=== PATIENT | female | born 1990 | race African-American/Black ===

== ENCOUNTER → 2016-08-10 | Outpatient (CLI) | payer BC | LOC: MW.CHOBGYN 14:43 | PROVIDERS: ATTEND Obstetrics & Gynecology | DX: Z34.90 Encounter for supervision of normal pregnancy, unspecified, unspecified trimester (principal) | CPT/HCPCS: 36415; 81003; 82950; 85027 ==

== ENCOUNTER → 2016-08-31 | Outpatient (CLI) | payer BC | LOC: MW.CHOBGYN 13:07 | PROVIDERS: ATTEND Obstetrics & Gynecology | DX: Z34.90 Encounter for supervision of normal pregnancy, unspecified, unspecified trimester (principal) | CPT/HCPCS: 81003 ==

== ENCOUNTER → 2016-09-28 | Outpatient (CLI) | payer BC, OTHER | LOC: MW.CHOBGYN 13:18 | PROVIDERS: ATTEND Obstetrics & Gynecology | DX: Z34.90 Encounter for supervision of normal pregnancy, unspecified, unspecified trimester (principal) | CPT/HCPCS: 81003 ==

== ENCOUNTER 2016-11-08 10:20 | Inpatient (IN) | payer BC, OTHER ==
[2016-11-08] MEDS ORDERED: Misoprostol 200 MCG Tab PO PRN (10:46)
[2016-11-08] MEDS ORDERED: Butorphanol 1 MG/ML SDV IVPUSH PRN (10:46)
[2016-11-08] MEDS ORDERED: Carboprost Tromethamine 250 MCG/1 ML Amp IM PRN (10:46)
[2016-11-08] MEDS ORDERED: Nalbuphine 10 MG/1 ML Vial IVPUSH PRN (10:46)
[2016-11-08] MEDS ORDERED: Sodium Chloride 0.9% 2.5 ML Syringe FLUSH PRN (10:46)
[2016-11-08] MEDS ORDERED: Methylergonovine 0.2 MG/1 ML Amp IM PRN (10:46)
[2016-11-08] MEDS ORDERED: Sodium Chloride 0.9% 10 ML Syringe FLUSH PRN (10:46)
[2016-11-08] MEDS ORDERED: Water For Irrigation,Sterile 1,000 ML Container IRR PRN (10:46)
[2016-11-08] MEDS ORDERED: Lidocaine 1% 50 ML MDV INJECT PRN (10:46)
[2016-11-08] MEDS ORDERED: Lactated Ringers 1,000 ML IV SCH (11:00)
[2016-11-08] MEDS ORDERED: Ampicillin 2 GM in Sodium Chloride 0.9% 100 ML IV ONE (11:00)
[2016-11-08] MEDS ORDERED: Oxytocin/Lactated Ringers 30 UNIT/500 ML BAG IV SCH (11:00)
[2016-11-08] MEDS ORDERED: Benzocaine/Menthol 20%-0.5% Spray 78 GM Cannister TOP PRN (11:21)
[2016-11-08] MEDS ORDERED: Bisacodyl 10 MG Supp RECTAL PRN (11:21)
[2016-11-08] MEDS ORDERED: Witch Hazel Medicated Pads 40/Jar TOP PRN (11:21)
[2016-11-08] MEDS ORDERED: Docusate Sodium 100 MG Cap PO PRN (11:21)
[2016-11-08] MEDS ORDERED: Acetaminophen 500 MG Tab PO PRN ×2 (11:21)
[2016-11-08] MEDS ORDERED: Lanolin 100% Cream 7 GM Tube TOP PRN (11:21)
[2016-11-08] MEDS ORDERED: Ibuprofen 400 MG Tab PO PRN (11:21)
--- NOTE | 2016-11-08 11:21 | PCM.LDHP ---
L&D History of Present Illness - General Date of Service: 11/08/16 Admit Problem/Dx: Patient Status Order with Admit Dx/Problem 11/08/16 10:46 Patient Status [ADT] Routine Admission Diagnosis/Problem Admission Diagnosis/Problem - planned Source of Information: Patient History Limitations: Reports: No Limitations - History of Present Illness Improves with: Reports: None Worsens with: Reports: None Associated Symptoms: Reports: N - Related Data Allergies/Adverse Reactions: Allergies Allergy/AdvReac Type Severity Reaction Status Date / Time No Known Allergies Allergy Verified 09/18/15 20:17 Home Medications: Home Meds Amoxicillin 500 mg PO Q8HR #21 capsule 09/18/15 [Rx] Past Medical History HEENT History: Reports: None Cardiovascular History: Reports: None Respiratory History: Reports: None Gastrointestinal History: Reports: None 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 OF 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 History: Reports: 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 Musculoskeletal History: Reports: None Neurological History: Reports: None Psychiatric History: Reports: None Dermatologic History: Reports: None - Infectious Disease History Infectious Disease History: Reports: None - Past Surgical History Head Surgeries/Procedures: Reports: None HEENT Surgical History: Reports: None Cardiovascular Surgical History: Reports: None Respiratory Surgical History: Reports: None Neurological Surgical History: Reports: None Social & Family History - Family History HEENT: Reports: None Cardiac: Reports: None Respiratory: Reports: None - Tobacco Use Smoking Status *Q: Never Smoker - Recreational Drug Use Recreational Drug Use: No H&P Review of Systems - Review of Systems: Review Of Systems: See Below General: Reports: No Symptoms HEENT: Reports: No Symptoms Pulmonary: Reports: No Symptoms Cardiovascular: Reports: No Symptoms Gastrointestinal: Reports: No Symptoms Genitourinary: Reports: No Symptoms Musculoskeletal: Reports: No Symptoms Skin: Reports: No Symptoms Psychiatric: Reports: No Symptoms Neurological: Reports: No Symptoms Hematologic/Lymphatic: Reports: No Symptoms Immunologic: Reports: No Symptoms L&D Exam - Exam Exam: See Below - Vital Signs Weight: 63.503 kg - OB Specific Fundal Height In cm: 37 Contraction Duration (sec): 30 Contraction Frequency (min): q2-3 Contraction Intensity: Moderate to Strong Movement: Active Heart Tones: Present Heart Rate (FHR) Variability: Moderate (6-25 bmp) Presentation: Vertex - Willis Score Willis Score Effacement: >80% Willis Score Dilation: > 5 cm Willis Score 's Station: -1 ,0 - Patient Data Lab Results Last 24 hrs: Laboratory Results - last 24 hr 11/08/16 Range/Units 11:01 WBC 8.61 (4.0-11.0) K/uL RBC 4.09 L (4.30-5.90) M/uL Hgb 12.3 (12.0-16.0) g/dL Hct 36.9 (36.0-46.0) % MCV 90.2 (80.0-98.0) fL MCH 30.1 (27.0-32.0) pg MCHC 33.3 (31.0-37.0) g/dL RDW Std Deviation 44.5 (28.0-62.0) fl RDW Coeff of Briana 14 (11.0-15.0) % Plt Count 165 (150-400) K/uL MPV 10.80 (7.40-12.00) fL Nucleated RBC % 0.0 /100WBC Nucleated RBCs # 0 K/uL Result Diagrams: 11/08/16 11:01 Problem List Initiated/Reviewed/Updated: Yes Orders Last 24hrs: Active Orders 24 hr Category Date Time Status Patient Status [ADT] Routine ADT 11/08/16 10:46 Active Heart Tones [RC] CONTINUOUS Care 11/08/16 10:46 Active Non Stress Test [RC] PER UNIT ROUTINE Care 11/08/16 10:46 Active May Shower [RC] ASDIRECTED Care 11/08/16 10:46 Active Notify Provider [RC] PRN Care 11/08/16 10:46 Active Up ad Monica [RC] ASDIRECTED Care 11/08/16 10:46 Active Vaginal Exam [RC] PRN Care 11/08/16 10:46 Active Vital Signs [RC] PER UNIT ROUTINE Care 11/08/16 10:46 Active TYPE AND SCREEN [BBK] Routine Lab 11/08/16 11:01 Received Ampicillin 2 gm Med 11/08/16 11:00 Active Sodium Chloride 0.9% [Normal Saline] 100 ml IV ONETIME Butorphanol [Stadol] Med 11/08/16 10:46 Active 1 mg IVPUSH Q1H PRN Carboprost Tromethamine [Hemabate DS] Med 11/08/16 10:46 Active 250 mcg IM ASDIRECTED PRN Lactated Ringers [Ringers, Lactated] 1,000 ml Med 11/08/16 11:00 Active IV ASDIRECTED Lidocaine 1% [Xylocaine 1%] Med 11/08/16 10:46 Active 50 ml INJECT .ONCE PRN Methylergonovine [Methergine] Med 11/08/16 10:46 Active 0.2 mg IM ASDIRECTED PRN Misoprostol [Cytotec] Med 11/08/16 10:46 Active 200 mcg PO .ONCE PRN Nalbuphine [Nubain] Med 11/08/16 10:46 Active 10 mg IVPUSH Q1H PRN Oxytocin/Lactated Ringers [Pitocin in LR 30 Units/500 Med 11/08/16 11:00 Active ML] 30 unit in 500 ml IV TITRATE Sodium Chloride 0.9% [Saline Flush] Med 11/08/16 10:46 Active 10 ml FLUSH ASDIRECTED PRN Sodium Chloride 0.9% [Saline Flush] Med 11/08/16 10:46 Active 2.5 ml FLUSH ASDIRECTED PRN Water For Irrigation,Sterile [Sterile Water for Med 11/08/16 10:46 Active Irrigation] 1,000 ml IRR ASDIRECTED PRN Scalp Electrode [WOMSER] Per Unit Routine Oth 11/08/16 10:46 Ordered Peripheral IV Insertion Adult [OM.PC] Routine Oth 11/08/16 10:46 Ordered Resuscitation Status Routine Resus Stat 11/08/16 10:46 Ordered Medication Orders Butorphanol Tartrate (Stadol) 1 mg IVPUSH Q1H PRN PRN Reason: Pain Carboprost Tromethamine (Hemabate Ds) 250 mcg IM ASDIRECTED PRN PRN Reason: Post Hemorrhage Ampicillin Sodium 2 gm/ Sodium (Chloride) 100 mls @ 200 mls/hr IV ONETIME ONE Stop: 11/08/16 11:29 Lactated Ringer's (Ringers, Lactated) 1,000 mls @ 150 mls/hr IV ASDIRECTED [place] Oxytocin/Lactated Ringer's (Pitocin In Lr 30 Units/500 Ml) 30 unit in 500 mls @ 500 mls/hr IV TITRATE [place] PRN Reason: 500 MUNITS/MIN Stop: 11/08/16 11:59 Lidocaine HCl (Xylocaine 1%) 50 ml INJECT .ONCE PRN PRN Reason: Laceration repair Methylergonovine Maleate (Methergine) 0.2 mg IM ASDIRECTED PRN PRN Reason: Post Hemorrhage Misoprostol (Cytotec) 200 mcg PO .ONCE PRN PRN Reason: Post Hemorrhage Nalbuphine HCl (Nubain) 10 mg IVPUSH Q1H PRN PRN Reason: Pain (severe 7-10) Stop: 11/08/16 12:47 Sodium Chloride (Saline Flush) 10 ml FLUSH ASDIRECTED PRN PRN Reason: Keep Vein Open Sodium Chloride (Saline Flush) 2.5 ml FLUSH ASDIRECTED PRN PRN Reason: Keep Vein Open Sterile Water (Sterile Water For Irrigation) 1,000 ml IRR ASDIRECTED PRN PRN Reason: delivery Assessment/Plan Comment:: Term in active labor.
[2016-11-08] MEDS: Ibuprofen 800 MG Tab PO PRN ×2 (11:48→21:26)
[2016-11-08] MEDS: oxyCODONE 5 MG Tab PO PRN (11:48)
--- NOTE | 2016-11-08 14:15 | OR ---
SURGEON: Ced Rose MD DATE OF PROCEDURE: 11/08/2016 Ms. Garcias is 26 years old. She is para 4-0-0-4. She is followed in our clinic in this . She had no complications. Her GBS status was positive early in the in the urine and negative at 35 weeks. However, we elected to treat the patient with antibiotic. The patient came to Labor and Delivery in active labor. At the time of admission, she was 6-7 cm vertex, intact bag of water with regular contractions. We were able to get an IV on her and we were able to get one dose of antibiotic in her system prior to delivery; however, the patient is delivered rather quickly and she had spontaneous rupture of the membrane of clear fluid and the precipitous labor of female fetus is attended by the nursing staff. By the time I arrived to the delivery room, the fetus was already delivered and was crying and Dr. Kelley was in attendance to the delivery and scores reported to be 8 and 9, and the weight is not available. The placenta is delivered spontaneous, complete, and intact without any problem. Perineum was intact. There was no perineal or vaginal laceration. Estimated blood loss was 250 to 300 mL. No complication in this . heart rate through the process of labor was category 1. JAYA / CANDICE /[id number]
[2016-11-09] MEDS: Ibuprofen 800 MG Tab PO PRN ×3 (04:09→23:44)
--- NOTE | 2016-11-09 12:05 | PCM.DCSUM1 ---
Discharge Summary - Hospital Course Free Text/Narrative:: Discharge home with infant. Follow up 6 weeks. - Discharge Data Discharge Date: 11/09/16 Discharge Disposition: Home, Self-Care 01 Condition: Good - Patient Instructions Diet: Heart Healthy Diet Activity: As Tolerated, Rest and Relax Today Driving: Do Not Drive (for a few days) Showering/Bathing: May Shower Notify Provider of: Fever, Increased Pain, Swelling and Redness, Nausea and/or Vomiting Other/Special Instructions: Discharge home with . Follow up 6 weeks. - Discharge Plan Home Medications: Home Meds Amoxicillin 500 mg PO Q8HR #21 capsule 09/18/15 [Rx] Referrals: [facility] [Outside] Ced Rose MD [Physician] - 12/20/16 10:45 am - General Info Date of Service: 11/09/16 Admission Dx/Problem (Free Text: Patient Status Order with Admit Dx/Problem 11/08/16 10:46 Patient Status [ADT] Routine Admission Diagnosis/Problem Admission Diagnosis/Problem - planned Functional Status: Reports: pain controlled, tolerating diet, ambulating, urinating - Review of Systems General: Reports: No Symptoms HEENT: Reports: no symptoms Pulmonary: Reports: no symptoms Cardiovascular: Reports: No Symptoms Gastrointestinal: Reports: No symptoms Genitourinary: Reports: no symptoms Musculoskeletal: Reports: no symptoms Skin: Reports: no symptoms Neurological: Reports: No Symptoms Psychiatric: Reports: no symptoms - Patient Data Vitals - Most Recent: Last Vital Signs Temp 36.8 C 11/09/16 09:30 Pulse 71 11/09/16 09:30 Resp 18 11/09/16 09:30 BP 114/61 11/09/16 09:30 Pulse Ox 97 11/08/16 19:53 Weight - Most Recent: 63.503 kg Lab Results - Last 24 hrs: Laboratory Results - last 24 hr 11/09/16 Range/Units 04:33 Hgb 11.2 L (12.0-16.0) g/dL Hct 34.0 L (36.0-46.0) % Med Orders - Current: Current Medications Acetaminophen (Tylenol Extra Strength) 500 mg PO Q4H PRN PRN Reason: Pain Acetaminophen (Tylenol Extra Strength) 1,000 mg PO Q4H PRN PRN Reason: Pain Benzocaine/Menthol (Dermoplast Pain Relief 20%-0.5% [place]) 78 gm TOP ASDIRECTED PRN PRN Reason: Perineal Comfort Measure Bisacodyl (Dulcolax) 10 mg RECTAL .ONCE PRN PRN Reason: Constipation Butorphanol Tartrate (Stadol) 1 mg IVPUSH Q1H PRN PRN Reason: Pain Carboprost Tromethamine (Hemabate Ds) 250 mcg IM ASDIRECTED PRN PRN Reason: Post Hemorrhage Docusate Sodium (Colace) 100 mg PO BID PRN PRN Reason: Constipation Emollient Ointment (Lansinoh Hpa) 0 gm TOP ASDIRECTED PRN PRN Reason: Sore Nipples Lactated Ringer's (Ringers, Lactated) 1,000 mls @ 150 mls/hr IV ASDIRECTED [place]ST[place]N Last Admin: 11/08/16 10:58 Dose: 150 mls/hr Ibuprofen (Motrin) 400 mg PO Q4H PRN PRN Reason: Pain Ibuprofen (Motrin) 800 mg PO Q6H PRN PRN Reason: Pain Last Admin: 11/09/16 04:09 Dose: 800 mg Lidocaine HCl (Xylocaine 1%) 50 ml INJECT .ONCE PRN PRN Reason: Laceration repair Methylergonovine Maleate (Methergine) 0.2 mg IM ASDIRECTED PRN PRN Reason: Post Hemorrhage Misoprostol (Cytotec) 200 mcg PO .ONCE PRN PRN Reason: Post Hemorrhage Oxycodone HCl (Oxycodone) 5 mg PO Q2H PRN PRN Reason: Pain Last Admin: 11/08/16 11:48 Dose: 5 mg Sodium Chloride (Saline Flush) 10 ml FLUSH ASDIRECTED PRN PRN Reason: Keep Vein Open Sodium Chloride (Saline Flush) 2.5 ml FLUSH ASDIRECTED PRN PRN Reason: Keep Vein Open Sterile Water (Sterile Water For Irrigation) 1,000 ml IRR ASDIRECTED PRN PRN Reason: delivery Witch Gabby (Tucks) 1 pad TOP ASDIRECTED PRN PRN Reason: comfort care Discontinued Medications Ampicillin Sodium 2 gm/ Sodium (Chloride) 100 mls @ 200 mls/hr IV ONETIME ONE Stop: 11/08/16 11:29 Last Admin: 11/08/16 11:05 Dose: 200 mls/hr Oxytocin/Lactated Ringer's (Pitocin In Lr 30 Units/500 Ml) 30 unit in 500 mls @ 500 mls/hr IV TITRATE [place] PRN Reason: 500 MUNITS/MIN Stop: 11/08/16 11:59 Last Admin: 11/08/16 11:12 Dose: 500 munits/min, 500 mls/hr Nalbuphine HCl (Nubain) 10 mg IVPUSH Q1H PRN PRN Reason: Pain (severe 7-10) Stop: 11/08/16 12:47 - Exam General: Reports: alert, oriented, cooperative, no acute distress Lungs: Reports: Normal respiratory effort Abdomen: Reports: soft, no tenderness, no distension (Female) Exam: Vaginal Bleeding Rectal (Female) Exam: Deferred Back Exam: Reports: Full Range of Motion Extremities: Reports: no edema, normal pulses Skin: Reports: warm, dry, intact Wound/Incisions: Reports: healing well Neurological: Reports: no new focal deficit, normal gait, normal speech, normal tone Psy/Mental Status: Reports: alert, normal affect, normal mood *Q Meaningful Use (DIS) - VTE *Q VTE Criteria *Q: - Stroke *Q Stroke Criteria *Q: - AMI *Q AMI Criteria *Q:
[2016-11-09] MEDS: oxyCODONE 5 MG Tab PO PRN ×2 (12:26→14:07)
[2016-11-10] MEDS: oxyCODONE 5 MG Tab PO PRN ×4 (00:33→12:23)
[2016-11-10] MEDS: Ibuprofen 800 MG Tab PO PRN (08:27)
[2016-11-10 08:55] VITALS: BP 111/63
--- NOTE | 2016-11-10 11:27 | PCM.DCSUM1 ---
Discharge Summary - Discharge Data Discharge Date: 11/10/16 Discharge Disposition: Home, Self-Care 01 Condition: Good - Patient Instructions Diet: Heart Healthy Diet Activity: As Tolerated, Rest and Relax Today Driving: Do Not Drive (for a few days) Showering/Bathing: May Shower Notify Provider of: Fever, Increased Pain, Swelling and Redness, Nausea and/or Vomiting Other/Special Instructions: Discharge home with . Follow up 6 weeks. - Discharge Plan Home Medications: Home Meds Amoxicillin 500 mg PO Q8HR #21 capsule 09/18/15 [Rx] Patient Handouts: Vaginal Delivery, Care After Referrals: [facility] [Outside] Ced Rose MD [Physician] - 12/20/16 10:45 am - General Info Date of Service: 11/10/16 Functional Status: Reports: pain controlled, tolerating diet, ambulating, urinating - Review of Systems General: Reports: No Symptoms HEENT: Reports: no symptoms Pulmonary: Reports: no symptoms Cardiovascular: Reports: No Symptoms Gastrointestinal: Reports: No symptoms Genitourinary: Reports: no symptoms Musculoskeletal: Reports: no symptoms Skin: Reports: no symptoms Neurological: Reports: No Symptoms Psychiatric: Reports: no symptoms - Patient Data Vitals - Most Recent: Last Vital Signs Temp 36.7 C 11/10/16 08:54 Pulse 86 11/10/16 08:54 Resp 18 11/10/16 08:54 BP 111/63 11/10/16 08:54 Pulse Ox 98 11/10/16 04:00 Weight - Most Recent: 63.503 kg Med Orders - Current: Current Medications Acetaminophen (Tylenol Extra Strength) 500 mg PO Q4H PRN PRN Reason: Pain Acetaminophen (Tylenol Extra Strength) 1,000 mg PO Q4H PRN PRN Reason: Pain Benzocaine/Menthol (Dermoplast Pain Relief 20%-0.5% [place]) 78 gm TOP ASDIRECTED PRN PRN Reason: Perineal Comfort Measure Bisacodyl (Dulcolax) 10 mg RECTAL .ONCE PRN PRN Reason: Constipation Butorphanol Tartrate (Stadol) 1 mg IVPUSH Q1H PRN PRN Reason: Pain Carboprost Tromethamine (Hemabate Ds) 250 mcg IM ASDIRECTED PRN PRN Reason: Post Hemorrhage Docusate Sodium (Colace) 100 mg PO BID PRN PRN Reason: Constipation Emollient Ointment (Lansinoh Hpa) 0 gm TOP ASDIRECTED PRN PRN Reason: Sore Nipples Lactated Ringer's (Ringers, Lactated) 1,000 mls @ 150 mls/hr IV ASDIRECTED [facility] Last Admin: 11/08/16 10:58 Dose: 150 mls/hr Ibuprofen (Motrin) 400 mg PO Q4H PRN PRN Reason: Pain Ibuprofen (Motrin) 800 mg PO Q6H PRN PRN Reason: Pain Last Admin: 11/10/16 08:27 Dose: 800 mg Lidocaine HCl (Xylocaine 1%) 50 ml INJECT .ONCE PRN PRN Reason: Laceration repair Methylergonovine Maleate (Methergine) 0.2 mg IM ASDIRECTED PRN PRN Reason: Post Hemorrhage Misoprostol (Cytotec) 200 mcg PO .ONCE PRN PRN Reason: Post Hemorrhage Oxycodone HCl (Oxycodone) 5 mg PO Q2H PRN PRN Reason: Pain Last Admin: 11/10/16 08:27 Dose: 5 mg Sodium Chloride (Saline Flush) 10 ml FLUSH ASDIRECTED PRN PRN Reason: Keep Vein Open Sodium Chloride (Saline Flush) 2.5 ml FLUSH ASDIRECTED PRN PRN Reason: Keep Vein Open Sterile Water (Sterile Water For Irrigation) 1,000 ml IRR ASDIRECTED PRN PRN Reason: delivery Witch Gabby (Tucks) 1 pad TOP ASDIRECTED PRN PRN Reason: comfort care Discontinued Medications Ampicillin Sodium 2 gm/ Sodium (Chloride) 100 mls @ 200 mls/hr IV ONETIME ONE Stop: 11/08/16 11:29 Last Admin: 11/08/16 11:05 Dose: 200 mls/hr Oxytocin/Lactated Ringer's (Pitocin In Lr 30 Units/500 Ml) 30 unit in 500 mls @ 500 mls/hr IV TITRATE [facility] PRN Reason: 500 MUNITS/MIN Stop: 11/08/16 11:59 Last Admin: 11/08/16 11:12 Dose: 500 munits/min, 500 mls/hr Nalbuphine HCl (Nubain) 10 mg IVPUSH Q1H PRN PRN Reason: Pain (severe 7-10) Stop: 11/08/16 12:47 - Exam General: Reports: alert, oriented HEENT: Reports: Mucous membr. moist/pink Lungs: Reports: Normal respiratory effort Abdomen: Reports: soft (Female) Exam: Vaginal Bleeding Rectal (Female) Exam: Deferred Back Exam: Reports: Normal Inspection Extremities: Reports: no edema, no tenderness/swelling Skin: Reports: warm, dry, intact Wound/Incisions: Reports: healing well Neurological: Reports: no new focal deficit, normal gait, normal speech, normal tone Psy/Mental Status: Reports: alert, normal affect, normal mood *Q Meaningful Use (DIS) - VTE *Q VTE Criteria *Q: - Stroke *Q Stroke Criteria *Q: - AMI *Q AMI Criteria *Q:
== END 2016-11-10 14:30 | disposition home or self-care (01) | DRG 560 ==
LOC: MW.OBCHECK 10:20 → MW.OB 10:25 → MW.OBCHECK 11:20 → MW.OB 11:23
PROVIDERS: ADMIT Obstetrics & Gynecology; ATTEND Obstetrics & Gynecology
PROC: 10E0XZZ Delivery of Products of Conception, External Approach (ICD-10-PCS; principal; 2016-11-08)
DX: O99.824 Streptococcus B carrier state complicating childbirth (principal); O62.3 Precipitate labor; Z37.0 Single live birth; Z3A.35 35 weeks gestation of pregnancy
CPT/HCPCS: 36415; 59025; 85014; 85018; 85027; 86850; 86900; 86901; A9270-GY; J0290; J7030; J7120

== ENCOUNTER 2017-05-12 18:17 | Emergency (ER) | payer BC, OTHER ==
[2017-05-12 18:37] VITALS: BP 107/63
[2017-05-12] MEDS ORDERED: Ondansetron 4 MG Tab.DIS PO ONE (18:50)
--- NOTE | 2017-05-12 18:50 | EDM.PDOC ---
ED HPI GENERAL MEDICAL PROBLEM - General Chief Complaint: Abdominal Pain Stated Complaint: ABDOMIN PAIN Time Seen by Provider: 05/12/17 18:35 Source of Information: Reports: Patient History Limitations: Reports: No Limitations - History of Present Illness INITIAL COMMENTS - FREE TEXT/NARRATIVE: HISTORY AND PHYSICAL: History of present illness: Patient is a 26-year-old female presents to the emergency room with complaints of left lower quadrant pain. She states that for the past 2 weeks she has had a dull ache in her left lower abdomen, nausea. Patient is concerned that she may be as she does not remember her last menstrual period. Review of systems: As per history of present illness and below otherwise all systems reviewed and negative. Past medical history: As per history of present illness and as reviewed below otherwise noncontributory. Surgical history: As per history of present illness and as reviewed below otherwise noncontributory. Social history: No reported history of drug or alcohol abuse. Family history: As per history of present illness and as reviewed below otherwise noncontributory. Physical exam: General: Well-developed and well-nourished 26-year-old female. Alert and oriented. Nontoxic appearing. HEENT: Atraumatic, normocephalic, pupils reactive, negative for conjunctival pallor or scleral icterus, mucous membranes moist, throat clear, neck supple, nontender, trachea midline. Lungs: Clear to auscultation, breath sounds equal bilaterally, chest nontender. Heart: S1S2, regular rate and rhythm - no overt murmurs Abdomen: Soft, nondistended, nontender. Negative for masses or hepatosplenomegaly. Negative for costovertebral tenderness. Pelvis: Stable nontender. Genitourinary: Deferred. Rectal: Deferred. Extremities: Atraumatic, moves all extremities per self without difficulty or deficit, negative for cords or calf pain. Neurovascular unremarkable. Neuro: Awake, alert, oriented. Cranial nerves II through XII unremarkable. Cerebellum unremarkable. Motor and sensory unremarkable throughout. Exam nonfocal. was positive. Will add a quantitative hCG and a transvaginal OB ultrasound. Ultrasound shows a confirmed intrauterine gestational sac containing a pole and a yolk sac, corresponding to 6 weeks and 2 days. There is cardiac activity with a heart rate of 144 bpm. Discussed with the patient the importance of establishing care with an ELECTRICAL PRODUCTS ENGINEER for further care. Please start a vitamin daily. Patient voices understanding and is agreeable to plan of care. Denies any further questions at this time. Diagnostics: CBC, CMP, UA, HCGU, quantitative hCG, OB ultrasound Therapeutics: IV fluid, Zofran ODT Impression: First trimester Nausea and vomiting Plan: 1. Please start a vitamin once daily 2. No smoking or drinking alcohol. Tylenol is safe for pain. Zofran has been prescribed for you for your nausea, this is safe in he may take 1 tablet every 8 hours as needed to prevent nausea/vomiting. 3. Please establish care with an ELECTRICAL PRODUCTS ENGINEER for care. The phone number has been given to you. 4. Return to the ED as needed and as discussed. Definitive disposition and diagnosis as appropriate pending reevaluation and review of above. Onset: Today Duration: Hour(s): Location: Reports: Abdomen Left Lower Abdomen Pain Score (Numeric/FACES): 1 - Related Data Allergies Allergy/AdvReac Type Severity Reaction Status Date / Time No Known Allergies Allergy Verified 05/12/17 18:37 Home Meds: Home Meds . [No Known Home Meds] 05/12/17 [History] Past Medical History - Past Health History Medical/Surgical History: Denies Medical/Surgical History HEENT History: Reports: None Cardiovascular History: Reports: None Respiratory History: Reports: None Gastrointestinal History: Reports: None ELECTRICAL PRODUCTS ENGINEER History: Reports: None, Musculoskeletal History: Reports: None Neurological History: Reports: None Psychiatric History: Reports: None Dermatologic History: Reports: None - Infectious Disease History Infectious Disease History: Reports: Chicken Pox - Past Surgical History Head Surgeries/Procedures: Reports: None HEENT Surgical History: Reports: None Cardiovascular Surgical History: Reports: None Respiratory Surgical History: Reports: None Neurological Surgical History: Reports: None Social & Family History - Family History HEENT: Reports: None Cardiac: Reports: None Respiratory: Reports: None - Tobacco Use Smoking Status *Q: Never Smoker Second Hand Smoke Exposure: No - Caffeine Use Caffeine Use: Reports: Coffee - Recreational Drug Use Recreational Drug Use: No ED ROS GENERAL - Review of Systems Review Of Systems: ROS reveals no pertinent complaints other than HPI. ED EXAM, GI/ABD - Physical Exam Exam: See Below (See dictation) Course - Vital Signs Last Recorded V/S: Last Vital Signs Temp 96.7 F 05/12/17 18:35 Pulse 77 05/12/17 18:35 Resp 12 05/12/17 18:35 BP 107/63 05/12/17 18:35 Pulse Ox 99 05/12/17 18:35 - Orders/Labs/Meds Orders: Active Orders 24 hr Category Date Time Status OB Transvaginal [US] Stat Exams 05/12/17 19:15 Taken CULTURE URINE [RM] Stat Lab 05/12/17 18:43 Received Labs: Laboratory Tests 05/12/17 05/12/17 05/12/17 Range/Units 18:43 18:43 19:06 WBC 4.86 (4.0-11.0) K/uL RBC 4.40 (4.30-5.90) M/uL Hgb 13.1 (12.0-16.0) g/dL Hct 39.1 (36.0-46.0) % MCV 88.9 (80.0-98.0) fL MCH 29.8 (27.0-32.0) pg MCHC 33.5 (31.0-37.0) g/dL RDW Std Deviation 40.9 (28.0-62.0) fl RDW Coeff of Briana 13 (11.0-15.0) % Plt Count 162 (150-400) K/uL MPV 11.40 (7.40-12.00) fL Neut % (Auto) 57.8 (48.0-80.0) % Lymph % (Auto) 34.2 (16.0-40.0) % Cherry % (Auto) 6.4 (0.0-15.0) % Eos % (Auto) 1.0 (0.0-7.0) % Baso % (Auto) 0.6 (0.0-1.5) % Neut # (Auto) 2.8 (1.4-5.7) K/uL Lymph # (Auto) 1.7 (0.6-2.4) K/uL Cherry # (Auto) 0.3 (0.0-0.8) K/uL Eos # (Auto) 0.1 (0.0-0.7) K/uL Baso # (Auto) 0.0 (0.0-0.1) K/uL Nucleated RBC % 0.0 /100WBC Nucleated RBCs # 0 K/uL Sodium (136-146) mmol/L Potassium (3.5-5.1) mmol/L Chloride (98-110) mmol/L Carbon Dioxide (21-31) mmol/L BUN (6.0-23.0) mg/dL Creatinine (0.6-1.5) mg/dL Est Cr Clr Drug Dosing mL/min Estimated GFR (MDRD) ml/min Glucose (60-110) mg/dL Calcium (8.8-10.8) mg/dL Total Bilirubin (0.1-1.5) mg/dL AST (5-40) IU/L ALT (8-54) IU/L Alkaline Phosphatase (40-150) Total Protein (6.0-8.0) g/dL Albumin (3.5-5.0) g/dL Globulin (2.0-3.5) g/dL Albumin/Globulin Ratio (1.3-2.8) HCG, Quant mIU/mL Urine Color YELLOW Urine Appearance CLEAR Urine pH 8.0 (5.0-8.0) Ur Specific [place] 1.020 (1.001-1.035) Urine Protein TRACE (NEGATIVE) mg/dL Urine Glucose (UA) NEGATIVE (NEGATIVE) mg/dL Urine Ketones NEGATIVE (NEGATIVE) mg/dL Urine Occult Blood NEGATIVE (NEGATIVE) Urine Nitrite NEGATIVE (NEGATIVE) Urine Bilirubin NEGATIVE (NEGATIVE) Urine Urobilinogen 2.0 H (<2.0) EU/dL Ur Leukocyte Esterase NEGATIVE (NEGATIVE) Urine RBC 0-2 (0-2/HPF) Urine WBC 1-3 (0-5/HPF) Ur Epithelial Cells MODERATE (NONE-FEW) Urine Bacteria FEW (NEGATIVE) Urine Mucus FEW (NONE-MOD) Urine HCG, Qual POSITIVE (NEGATIVE) 05/12/17 05/12/17 Range/Units 19:06 19:06 WBC (4.0-11.0) K/uL RBC (4.30-5.90) M/uL Hgb (12.0-16.0) g/dL Hct (36.0-46.0) % MCV (80.0-98.0) fL MCH (27.0-32.0) pg MCHC (31.0-37.0) g/dL RDW Std Deviation (28.0-62.0) fl RDW Coeff of Briana (11.0-15.0) % Plt Count (150-400) K/uL MPV (7.40-12.00) fL Neut % (Auto) (48.0-80.0) % Lymph % (Auto) (16.0-40.0) % Cherry % (Auto) (0.0-15.0) % Eos % (Auto) (0.0-7.0) % Baso % (Auto) (0.0-1.5) % Neut # (Auto) (1.4-5.7) K/uL Lymph # (Auto) (0.6-2.4) K/uL Cherry # (Auto) (0.0-0.8) K/uL Eos # (Auto) (0.0-0.7) K/uL Baso # (Auto) (0.0-0.1) K/uL Nucleated RBC % /100WBC Nucleated RBCs # K/uL Sodium 138 (136-146) mmol/L Potassium 3.5 (3.5-5.1) mmol/L Chloride 109 (98-110) mmol/L Carbon Dioxide 24 (21-31) mmol/L BUN 13 (6.0-23.0) mg/dL Creatinine 0.7 (0.6-1.5) mg/dL Est Cr Clr Drug Dosing 108.63 mL/min Estimated GFR (MDRD) > 60.0 ml/min Glucose 81 (60-110) mg/dL Calcium 8.8 (8.8-10.8) mg/dL Total Bilirubin 0.5 (0.1-1.5) mg/dL AST 15 (5-40) IU/L ALT 13 (8-54) IU/L Alkaline Phosphatase 62 (40-150) Total Protein 7.0 (6.0-8.0) g/dL Albumin 3.8 (3.5-5.0) g/dL Globulin 3.2 (2.0-3.5) g/dL Albumin/Globulin Ratio 1.2 L (1.3-2.8) HCG, Quant 724477.7 mIU/mL Urine Color Urine Appearance Urine pH (5.0-8.0) Ur Specific [place] (1.001-1.035) Urine Protein (NEGATIVE) mg/dL Urine Glucose (UA) (NEGATIVE) mg/dL Urine Ketones (NEGATIVE) mg/dL Urine Occult Blood (NEGATIVE) Urine Nitrite (NEGATIVE) Urine Bilirubin (NEGATIVE) Urine Urobilinogen (<2.0) EU/dL Ur Leukocyte Esterase (NEGATIVE) Urine RBC (0-2/HPF) Urine WBC (0-5/HPF) Ur Epithelial Cells (NONE-FEW) Urine Bacteria (NEGATIVE) Urine Mucus (NONE-MOD) Urine HCG, Qual (NEGATIVE) Meds: Medications Discontinued Medications Generic Name Dose Route Start Last Admin Trade Name Elodia PRN Reason Stop Dose Admin Sodium Chloride 1,000 mls @ 999 mls/hr 05/12/17 19:16 05/12/17 19:28 Normal Saline IV 05/12/17 20:16 Not Given STAT ONE Ondansetron HCl 4 mg 05/12/17 18:50 05/12/17 19:04 Zofran Odt PO 05/12/17 18:51 4 mg ONETIME ONE Administration Departure - Departure Time of Disposition: 20:46 Disposition: Home, Self-Care 01 Clinical Impression: First trimester , Nausea and vomiting during - Discharge Information Referrals: Ced Rose MD [Primary Care Provider] - Forms: ED Department Discharge Additional Instructions: My general discharge The following information is given to patients seen in the emergency department who are being discharged to home. This information is to outline your options for follow-up care. We provide all patients seen in our emergency department with a follow-up referral. The need for follow-up, as well as the timing and circumstances, are variable depending upon the specifics of your emergency department visit. If you don't have a primary care physician on staff, we will provide you with a referral. We always advise you to contact your personal physician following an emergency department visit to inform them of the circumstance of the visit and for follow-up with them and/or the need for any referrals to a consulting specialist. The emergency department will also refer you to a specialist when appropriate. This referral assures that you have the opportunity for follow-up care with a specialist. All of these measure are taken in an effort to provide you with optimal care, which includes your follow-up. Under all circumstances we always encourage you to contact your private physician who remains a resource for coordinating your care. When calling for follow-up care, please make the office aware that this follow-up is from your recent emergency room visit. If for any reason you are refused follow-up, please contact the [facility] Emergency Department at and asked to speak to the emergency department charge nurse. [facility] [address] [place] [id number] [facility] [address] [address] 1. Please start a vitamin once daily 2. No smoking or drinking alcohol. Tylenol is safe for pain. Zofran has been prescribed for you for your nausea, this is safe in he may take 1 tablet every 8 hours as needed to prevent nausea/vomiting. 3. Please establish care with an ELECTRICAL PRODUCTS ENGINEER for care. The phone number has been given to you. 4. Return to the ED as needed and as discussed. - My Orders Last 24 Hours: My Active Orders 05/12/17 18:43 CULTURE URINE [RM] Stat 05/12/17 19:15 OB Transvaginal [US] Stat - Assessment/Plan Last 24 Hours: My Active Orders 05/12/17 18:43 CULTURE URINE [RM] Stat 05/12/17 19:15 OB Transvaginal [US] Stat
[2017-05-12] MEDS ORDERED: Sodium Chloride 0.9% 1,000 ML IV ONE (19:16)
[2017-05-12 19:37] LABS: CHLORIDE,CL 109 mmol/L (98-110); SODIUM,NA 138 mmol/L (136-146)
--- NOTE | 2017-05-16 13:08 | US ---
EXAM DATE: 05/12/17 PATIENT'S AGE: 26 Patient: PRASANTH SALMON Facility: [place], [place] Site . Site : 1990 Study: US OB Pelvis [id number] 8:15:31 PM Ordering Physician: Doctor Johnson Final Report: INDICATION: . Left lower quadrant pain TECHNIQUE: Ultrasound OB pelvis transvaginal. Real-time welsh-scale imaging of the pelvis was performed. COMPARISON: None available FINDINGS: There is an intrauterine gestational sac containing a pole and a yolk sac with a crown-rump length of 4- 5 millimeters, corresponding to 6 weeks and 2 days. There is cardiac activity with a heart rate of 144 bpm. The yolk sac measures 2 millimeters. The cervix is closed, measuring 3.6 centimeters. A cervical nabothian cyst is seen. The left ovary measures 1.6 x 2.5 x 2.0 centimeters and the right ovary measures 3.9 x 4.3 x 2.6 centimeters, containing a 2.7 x 2.0 centimeter corpus luteum. There is small free fluid. IMPRESSION: A single live early intrauterine gestation at 6 weeks and 2 days by crown-rump length. Small free fluid. Dictated by Jared Steen MD @ 05/12/2017 8:40:51 PM Dictated by: Jared Steen MD @ 05/12/2017 20:40:58 (Electronic Signature) Report Signed by Proxy. ALESSIA
== END 2017-05-12 20:59 | disposition home or self-care (01) ==
LOC: MW.ED 18:17
DX: O21.9 Vomiting of pregnancy, unspecified (principal); Z3A.01 Less than 8 weeks gestation of pregnancy
CPT/HCPCS: 36415; 76817; 80053; 81001; 81025; 84702; 85025; 87086; 99284; A9270

== ENCOUNTER 2017-11-14 15:39 | Emergency (ER) | payer BC, OTHER, SELFPAY ==
[2017-11-14] MEDS ORDERED: Acetaminophen 325 MG Tab PO ONE (16:03)
--- NOTE | 2017-11-14 16:04 | EDM.PDOC ---
ED HPI GENERAL MEDICAL PROBLEM - General Chief Complaint: Lower Extremity Injury/Pain Stated Complaint: RIGHT LEG PAIN FROM FALL Time Seen by Provider: 11/14/17 15:47 Source of Information: Reports: Patient History Limitations: Reports: No Limitations - History of Present Illness INITIAL COMMENTS - FREE TEXT/NARRATIVE: History of present illness: []Patient is in her third trimester of and fell 5 days ago in the shower and did the splits. She has had severe pain right upper thigh/groin. She' s been using icy hot without relief. She denies any hip pain. Review of systems: As per history of present illness and below otherwise all systems reviewed and negative. Past medical history: As per history of present illness and as reviewed below otherwise noncontributory. Surgical history: As per history of present illness and as reviewed below otherwise noncontributory. Social history: No reported history of drug or alcohol abuse. Family history: As per history of present illness and as reviewed below otherwise noncontributory. Physical exam: General: Well developed, well nourished in NAD HEENT: Atraumatic, normocephalic, pupils reactive, negative for conjunctival pallor or scleral icterus, mucous membranes moist, throat clear, neck supple, nontender, trachea midline. Lungs: Clear to auscultation, breath sounds equal bilaterally, chest nontender. Heart: S1S2, regular, negative for clicks, rubs, or JVD. Abdomen: abdomen, nondistended, nontender. Negative for masses or hepatosplenomegaly. Negative for costovertebral tenderness. Pelvis: Stable nontender. Genitourinary: Deferred. Rectal: Deferred. Extremities: Atraumatic, full range of motion pelvis stable to rock tenderness in the right groin to palpation and with external rotation. negative for cords or calf pain. Neurovascular unremarkable. Neuro: Awake, alert, oriented. Cranial nerves II through XII unremarkable. Cerebellum unremarkable. Motor and sensory unremarkable throughout. Exam nonfocal. Diagnostics: [] Therapeutics: []Patient was cleared by Dr. Rose prior to arrival to ED. Impression: []Right Groin pull Plan: []Tylenol, ice, heat follow-up with PMD. Definitive disposition and diagnosis as appropriate pending reevaluation and review of above. right leg Pain Score (Numeric/FACES): 10 - Related Data Allergies Allergy/AdvReac Type Severity Reaction Status Date / Time No Known Allergies Allergy Verified 11/14/17 15:52 Home Meds: Home Meds . [No Known Home Meds] 05/12/17 [History] Past Medical History - Past Health History Medical/Surgical History: Denies Medical/Surgical History HEENT History: Reports: None Cardiovascular History: Reports: None Respiratory History: Reports: None Gastrointestinal History: Reports: None Genitourinary History: Reports: None PHOTOGRAPH EDITOR History: Reports: Musculoskeletal History: Reports: None Neurological History: Reports: None Psychiatric History: Reports: None Endocrine/Metabolic History: Reports: None Hematologic History: Reports: None Immunologic History: Reports: None Oncologic (Cancer) History: Reports: None Dermatologic History: Reports: None - Infectious Disease History Infectious Disease History: Reports: Chicken Pox - Past Surgical History Head Surgeries/Procedures: Reports: None HEENT Surgical History: Reports: None Cardiovascular Surgical History: Reports: None Respiratory Surgical History: Reports: None GI Surgical History: Reports: None Female Surgical History: Reports: None Endocrine Surgical History: Reports: None Neurological Surgical History: Reports: None Musculoskeletal Surgical History: Reports: None Oncologic Surgical History: Reports: None Social & Family History - Family History Family Medical History: Noncontributory HEENT: Reports: None Cardiac: Reports: None Respiratory: Reports: None - Tobacco Use Smoking Status *Q: Never Smoker Second Hand Smoke Exposure: No - Caffeine Use Caffeine Use: Reports: None - Recreational Drug Use Recreational Drug Use: No Review of Systems - Review of Systems Review Of Systems: See Below (See history of present illness) ED EXAM, GENERAL - Physical Exam Exam: See Below (See history of present illness) Course - Vital Signs Last Recorded V/S: Last Vital Signs Temp 97.5 F 11/14/17 15:52 Pulse 89 11/14/17 15:52 Resp 18 11/14/17 15:52 BP 99/52 L 11/14/17 15:52 Pulse Ox 98 11/14/17 15:52 - Orders/Labs/Meds Meds: Medications Discontinued Medications Generic Name Dose Route Start Last Admin Trade Name Freq PRN Reason Stop Dose Admin Acetaminophen 650 mg 11/14/17 16:03 11/14/17 16:14 Tylenol PO 11/14/17 16:04 650 mg NOW ONE Administration Departure - Departure Time of Disposition: 16:08 Disposition: Home, Self-Care 01 Condition: Good Clinical Impression: Musculoskeletal strain - Discharge Information Referrals: PCP,None [Primary Care Provider] - Forms: ED Department Discharge Additional Instructions: The following information is given to patients seen in the emergency department who are being discharged to home. This information is to outline your options for follow-up care. We provide all patients seen in our emergency department with a follow-up referral. The need for follow-up, as well as the timing and circumstances, are variable depending upon the specifics of your emergency department visit. If you don't have a primary care physician on staff, we will provide you with a referral. We always advise you to contact your personal physician following an emergency department visit to inform them of the circumstance of the visit and for follow-up with them and/or the need for any referrals to a consulting specialist. The emergency department will also refer you to a specialist when appropriate. This referral assures that you have the opportunity for follow-up care with a specialist. All of these measure are taken in an effort to provide you with optimal care, which includes your follow-up. Under all circumstances we always encourage you to contact your private physician who remains a resource for coordinating your care. When calling for follow-up care, please make the office aware that this follow-up is from your recent emergency room visit. If for any reason you are refused follow-up, please contact the [facility] Emergency Department at and asked to speak to the emergency department charge nurse. Use ice 20 minutes at a time alternate with heat for comfort Tylenol for pain, follow up with her primary care physician. [facility] Primary Care - Women's Health [address] [place] [id number]
[2017-11-14 16:34] VITALS: BP 98/63
== END 2017-11-14 16:31 | disposition home or self-care (01) ==
LOC: MW.ED 15:39
DX: S76.211A Strain of adductor muscle, fascia and tendon of right thigh, initial encounter (principal); W18.2XXA Fall in (into) shower or empty bathtub, initial encounter
CPT/HCPCS: 99282; A9270

== ENCOUNTER 2018-01-04 05:13 | Inpatient (IN) | payer BC ==
[2018-01-04] MEDS ORDERED: Oxytocin/0.9 % Sodium Chloride 30 UNIT/500 ML BAG ONE (05:19)
[2018-01-04] MEDS ORDERED: Butorphanol 1 MG/ML SDV IVPUSH PRN (05:30)
[2018-01-04] MEDS ORDERED: Water For Irrigation,Sterile 1,000 ML Container IRR PRN (05:30)
[2018-01-04] MEDS ORDERED: Sodium Chloride 0.9% 2.5 ML Syringe FLUSH PRN (05:30)
[2018-01-04] MEDS ORDERED: Methylergonovine 0.2 MG/1 ML Amp IM PRN (05:30)
[2018-01-04] MEDS ORDERED: Nalbuphine 10 MG/1 ML Vial IVPUSH PRN (05:30)
[2018-01-04] MEDS ORDERED: Carboprost Tromethamine 250 MCG/1 ML Amp IM PRN (05:30)
[2018-01-04] MEDS ORDERED: Sodium Chloride 0.9% 10 ML Syringe FLUSH PRN (05:30)
[2018-01-04] MEDS ORDERED: Misoprostol 200 MCG Tab PO PRN (05:30)
[2018-01-04] MEDS ORDERED: Oxytocin/0.9 % Sodium Chloride 30 UNIT/500 ML BAG IV SCH (05:30)
[2018-01-04] MEDS ORDERED: Lidocaine 1% 50 ML MDV INJECT PRN (05:30)
[2018-01-04] MEDS ORDERED: Tranexamic Acid 1,000 MG in Sodium Chloride 0.9% 100 ML IV PRN (05:30)
[2018-01-04] MEDS ORDERED: Lactated Ringers 1,000 ML IV SCH (05:30)
[2018-01-04] MEDS ORDERED: Acetaminophen 500 MG Tab PO PRN ×2 (05:52)
[2018-01-04] MEDS ORDERED: Lanolin 100% Cream 7 GM Tube TOP PRN (05:52)
[2018-01-04] MEDS ORDERED: Bisacodyl 10 MG Supp RECTAL PRN (05:52)
[2018-01-04] MEDS ORDERED: Docusate Sodium 100 MG Cap PO PRN (05:52)
[2018-01-04] MEDS ORDERED: Ibuprofen 400 MG Tab PO PRN (05:52)
[2018-01-04] MEDS ORDERED: Witch Hazel Medicated Pads 40/Jar TOP PRN (05:52)
[2018-01-04] MEDS ORDERED: Benzocaine/Menthol 20%-0.5% Spray 78 GM Cannister TOP PRN (05:52)
--- NOTE | 2018-01-04 05:52 | PCM.LDHP ---
L&D History of Present Illness - General Date of Service: 01/04/18 Admit Problem/Dx: Patient Status Order with Admit Dx/Problem 01/04/18 05:30 Patient Status [ADT] Routine Admission Diagnosis/Problem Admission Diagnosis/Problem - planned Source of Information: Patient History Limitations: Reports: No Limitations - History of Present Illness Improves with: Reports: None Worsens with: Reports: None Associated Symptoms: Reports: N - Related Data Allergies/Adverse Reactions: Allergies Allergy/AdvReac Type Severity Reaction Status Date / Time No Known Allergies Allergy Verified 11/14/17 15:52 Home Medications: Home Meds . 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: Musculoskeletal History: Reports: None Neurological History: Reports: None Psychiatric History: Reports: None Endocrine/Metabolic History: Reports: None Hematologic History: Reports: None Immunologic History: Reports: None Oncologic (Cancer) History: Reports: None Dermatologic History: Reports: None - Infectious Disease History Infectious Disease History: Reports: Chicken Pox - Past Surgical History Head Surgeries/Procedures: Reports: None HEENT Surgical History: Reports: None Cardiovascular Surgical History: Reports: None Respiratory Surgical History: Reports: None GI Surgical History: Reports: None Female Surgical History: Reports: None Endocrine Surgical History: Reports: None Neurological Surgical History: Reports: None Musculoskeletal Surgical History: Reports: None Oncologic Surgical History: Reports: None Social & Family History - Family History Family Medical History: Noncontributory HEENT: Reports: None Cardiac: Reports: None Respiratory: Reports: None - Caffeine Use Caffeine Use: Reports: None H&P Review of Systems - Review of Systems: Review Of Systems: See Below General: Reports: No Symptoms HEENT: Reports: No Symptoms Pulmonary: Reports: No Symptoms Cardiovascular: Reports: No Symptoms Gastrointestinal: Reports: No Symptoms Genitourinary: Reports: No Symptoms Musculoskeletal: Reports: No Symptoms Skin: Reports: No Symptoms Psychiatric: Reports: No Symptoms Neurological: Reports: No Symptoms Hematologic/Lymphatic: Reports: No Symptoms Immunologic: Reports: No Symptoms L&D Exam - Exam Exam: See Below - OB Specific Contraction Intensity: Moderate to Strong Movement: Active Heart Tones: Present Presentation: Vertex - Willis Score Willis Score Cervix Position: Anterior Willis Score Consistency: Soft Willis Score Effacement: >80% Willis Score Dilation: > 5 cm Willis Score Infant's Station: -1 ,0 Willis Score Total: 12 - Exam General: Alert, Oriented HEENT: PERRLA, Conjunctiva Clear, EACs Clear, EOMI, Hearing Intact, Mucosa Moist & [place], Nares Patent, Normal Nasal Septum, Posterior Pharynx Clear, TMs Clear Neck: Supple, Trachea Midline Lungs: Clear to Auscultation, Normal Respiratory Effort Cardiovascular: Regular Rate, Regular Rhythm GI/Abdominal Exam: Normal Bowel Sounds, Soft, Non-Tender, No Organomegaly, No Distention, No Abnormal Bruit, No Mass, Pelvis Stable Rectal Exam: Normal Exam, Normal Rectal Tone Genitourinary: Normal external exam, Normal bimanual exam, Normal speculum exam Back Exam: Normal Inspection, Full Range of Motion Extremities: Normal Inspection, Normal Range of Motion, Non-Tender, No Pedal Edema, Normal Capillary Refill Skin: Warm, Dry, Intact Neurological: Cranial Nerves Intact, Reflexes Equal Bilateral Psychiatric: Alert, Normal Affect, Normal Mood - Patient Data Lab Results Last 24 hrs: Laboratory Results - last 24 hr 01/04/18 Range/Units 05:30 WBC 7.12 (4.0-11.0) K/uL RBC 4.20 L (4.30-5.90) M/uL Hgb 11.8 L (12.0-16.0) g/dL Hct 35.9 L (36.0-46.0) % MCV 85.5 (80.0-98.0) fL MCH 28.1 (27.0-32.0) pg MCHC 32.9 (31.0-37.0) g/dL RDW Std Deviation 45.4 (28.0-62.0) fl RDW Coeff of Briana 15 (11.0-15.0) % Plt Count 177 (150-400) K/uL MPV 12.70 H (7.40-12.00) fL Nucleated RBC % 0.0 /100WBC Nucleated RBCs # 0 K/uL Result Diagrams: 01/04/18 05:30 Problem List Initiated/Reviewed/Updated: Yes Orders Last 24hrs: Active Orders 24 hr Category Date Time Status Patient Status [ADT] Routine ADT 01/04/18 05:30 Active Heart Tones [RC] CONTINUOUS Care 01/04/18 05:30 Active Non Stress Test [RC] PER UNIT ROUTINE Care 01/04/18 05:30 Active May Shower [RC] ASDIRECTED Care 01/04/18 05:30 Active Notify Provider [RC] PRN Care 01/04/18 05:30 Active Up ad Monica [RC] ASDIRECTED Care 01/04/18 05:30 Active Vaginal Exam [RC] PRN Care 01/04/18 05:30 Active Vital Signs [RC] PER UNIT ROUTINE Care 01/04/18 05:30 Active TYPE AND SCREEN [BBK] Stat Lab 01/04/18 05:30 Received Butorphanol [Stadol] Med 01/04/18 05:30 Active 1 mg IVPUSH Q1H PRN Carboprost Tromethamine [Hemabate DS] Med 01/04/18 05:30 Active 250 mcg IM ASDIRECTED PRN Lactated Ringers [Ringers, Lactated] 1,000 ml Med 01/04/18 05:30 Active IV ASDIRECTED Lidocaine 1% [Xylocaine 1%] Med 01/04/18 05:30 Active 50 ml INJECT ONETIME PRN Methylergonovine [Methergine] Med 01/04/18 05:30 Active 0.2 mg IM ASDIRECTED PRN Nalbuphine [Nubain] Med 01/04/18 05:30 Active 10 mg IVPUSH Q1H PRN Oxytocin/0.9 % Sodium Chloride [Oxytocin 30 Unit/500 ML Med 01/04/18 05:30 Active -NS] 30 unit in 500 ml IV TITRATE Sodium Chloride 0.9% [Saline Flush] Med 01/04/18 05:30 Active 10 ml FLUSH ASDIRECTED PRN Sodium Chloride 0.9% [Saline Flush] Med 01/04/18 05:30 Active 2.5 ml FLUSH ASDIRECTED PRN Tranexamic Acid [Cyklokapron] 1,000 mg Med 01/04/18 05:30 Active Sodium Chloride 0.9% [Normal Saline] 100 ml IV ONETIME Water For Irrigation,Sterile [Sterile Water for Med 01/04/18 05:30 Active Irrigation] 1,000 ml IRR ASDIRECTED PRN miSOPROStol [Cytotec] Med 01/04/18 05:30 Active 200 mcg PO ONETIME PRN Scalp Electrode [WOMSER] Per Unit Routine Oth 01/04/18 05:30 Ordered Peripheral IV Insertion Adult [OM.PC] Routine Oth 01/04/18 05:30 Ordered Resuscitation Status Routine Resus Stat 01/04/18 05:30 Ordered Medication Orders Butorphanol Tartrate (Stadol) 1 mg IVPUSH Q1H PRN PRN Reason: Pain Carboprost Tromethamine (Hemabate Ds) 250 mcg IM ASDIRECTED PRN PRN Reason: Post Hemorrhage Lactated Ringer's (Ringers, Lactated) 1,000 mls @ 150 mls/hr IV ASDIRECTED SEBASTIÁN Oxytocin/Sodium Chloride (Oxytocin 30 Unit/500 Ml-Ns) 30 unit in 500 mls @ 999 mls/hr IV TITRATE SEBASTIÁN Tranexamic Acid 1,000 mg/ (Sodium Chloride) 110 mls @ 660 mls/hr IV ONETIME PRN PRN Reason: Bleeding Lidocaine HCl (Xylocaine 1%) 50 ml INJECT ONETIME PRN PRN Reason: Laceration repair Methylergonovine Maleate (Methergine) 0.2 mg IM ASDIRECTED PRN PRN Reason: Post Hemorrhage Misoprostol (Cytotec) 200 mcg PO ONETIME PRN PRN Reason: Post Hemorrhage Nalbuphine HCl (Nubain) 10 mg IVPUSH Q1H PRN PRN Reason: Pain (severe 7-10) Sodium Chloride (Saline Flush) 10 ml FLUSH ASDIRECTED PRN PRN Reason: Keep Vein Open Sodium Chloride (Saline Flush) 2.5 ml FLUSH ASDIRECTED PRN PRN Reason: Keep Vein Open Sterile Water (Sterile Water For Irrigation) 1,000 ml IRR ASDIRECTED PRN PRN Reason: delivery Assessment/Plan Comment:: Terpregnancy in active labor.
[2018-01-04] MEDS: Ibuprofen 800 MG Tab PO PRN ×3 (06:22→19:29)
[2018-01-04] MEDS: oxyCODONE 5 MG Tab PO PRN ×3 (07:32→21:52)
--- NOTE | 2018-01-04 13:29 | OR ---
SURGEON: Ced Rose MD DATE OF PROCEDURE: 01/04/2018 Ms. Garcias is 27. She is para 3-0-0-3. She is followed in our practice primarily by me. She started her care late at 28 weeks. Her GBS status was negative. Her diabetes screen is negative. The rest of her lab work prenatally was normal. The patient had uncomplicated care. She is admitted to Labor and delivery early this morning in active labor. At the time of admission, she was 8 and 9 cm with a bulging bag of water with vertex presentation. She had an artificial rupture of the membranes and quickly, she was able to accomplish normal spontaneous vaginal delivery of a male fetus. score reported to be 8 and 9. The weight is not available. The placenta delivered spontaneous, complete, and intact without any problem. There was no episiotomy needed. There was no laceration. Estimated blood loss in this delivery 350 to 400 mL. heart rate was category 1 through the entire process of labor. JAYA / CANDICE /[id number]
[2018-01-05] MEDS: oxyCODONE 5 MG Tab PO PRN (08:02)
[2018-01-05] MEDS: Ibuprofen 800 MG Tab PO PRN (08:03)
[2018-01-05 08:14] VITALS: BP 114/73
--- NOTE | 2018-01-05 08:59 | PCM.PNPP ---
- General Info Date of Service: 01/05/18 Functional Status: Reports: Pain Controlled - Review of Systems General: Reports: No Symptoms HEENT: Reports: No Symptoms Pulmonary: Reports: No Symptoms Cardiovascular: Reports: No Symptoms Gastrointestinal: Reports: No Symptoms Genitourinary: Reports: No Symptoms Musculoskeletal: Reports: No Symptoms Skin: Reports: No Symptoms Neurological: Reports: No Symptoms Psychiatric: Reports: No Symptoms - General Info Date of Service: 01/05/18 - Patient Data Vital Signs - Most Recent: Last Vital Signs Temp 36.9 C 01/05/18 08:06 Pulse 65 01/05/18 08:06 Resp 15 01/05/18 08:06 BP 114/73 01/05/18 08:06 Pulse Ox 98 01/05/18 08:06 Weight - Most Recent: 63.503 kg Lab Results - Last 24 Hours: Laboratory Results - last 24 hr 01/05/18 Range/Units 04:58 Hgb 10.9 L (12.0-16.0) g/dL Hct 33.0 L (36.0-46.0) % Med Orders - Current: Current Medications Acetaminophen (Tylenol Extra Strength) 500 mg PO Q4H PRN PRN Reason: Pain Acetaminophen (Tylenol Extra Strength) 1,000 mg PO Q4H PRN PRN Reason: Pain Benzocaine/Menthol (Dermoplast Pain Relief 20%-0.5% [place]) 78 gm TOP ASDIRECTED PRN PRN Reason: Perineal Comfort Measure Bisacodyl (Dulcolax) 10 mg RECTAL ONETIME PRN PRN Reason: Constipation Butorphanol Tartrate (Stadol) 1 mg IVPUSH Q1H PRN PRN Reason: Pain Carboprost Tromethamine (Hemabate Ds) 250 mcg IM ASDIRECTED PRN PRN Reason: Post Hemorrhage Docusate Sodium (Colace) 100 mg PO BID PRN PRN Reason: Constipation Last Admin: 01/04/18 19:29 Dose: 100 mg Emollient Ointment (Lansinoh Hpa) 0 gm TOP ASDIRECTED PRN PRN Reason: Sore Nipples Lactated Ringer's (Ringers, Lactated) 1,000 mls @ 150 mls/hr IV ASDIRECTED SEBASTIÁN Oxytocin/Sodium Chloride (Oxytocin 30 Unit/500 Ml-Ns) 30 unit in 500 mls @ 999 mls/hr IV TITRATE SEBASTIÁN Last Admin: 01/04/18 05:41 Dose: 999 mls/hr Tranexamic Acid 1,000 mg/ (Sodium Chloride) 110 mls @ 660 mls/hr IV ONETIME PRN PRN Reason: Bleeding Ibuprofen (Motrin) 400 mg PO Q4H PRN PRN Reason: Pain Ibuprofen (Motrin) 800 mg PO Q6H PRN PRN Reason: Pain Last Admin: 01/05/18 08:03 Dose: 800 mg Lidocaine HCl (Xylocaine 1%) 50 ml INJECT ONETIME PRN PRN Reason: Laceration repair Methylergonovine Maleate (Methergine) 0.2 mg IM ASDIRECTED PRN PRN Reason: Post Hemorrhage Misoprostol (Cytotec) 200 mcg PO ONETIME PRN PRN Reason: Post Hemorrhage Nalbuphine HCl (Nubain) 10 mg IVPUSH Q1H PRN PRN Reason: Pain (severe 7-10) Oxycodone HCl (Oxycodone) 5 mg PO Q2H PRN PRN Reason: Pain Last Admin: 01/05/18 08:02 Dose: 5 mg Sodium Chloride (Saline Flush) 10 ml FLUSH ASDIRECTED PRN PRN Reason: Keep Vein Open Sodium Chloride (Saline Flush) 2.5 ml FLUSH ASDIRECTED PRN PRN Reason: Keep Vein Open Sterile Water (Sterile Water For Irrigation) 1,000 ml IRR ASDIRECTED PRN PRN Reason: delivery Witch Gabby (Tucks) 1 pad TOP ASDIRECTED PRN PRN Reason: comfort care Discontinued Medications Oxytocin/Sodium Chloride (Oxytocin 30 Unit/500 Ml-Ns) Confirm Administered Dose 30 unit in 500 mls @ as directed .ROUTE .STK-MED ONE Stop: 01/04/18 05:20 - Infant Interaction Disposition, : in Room with Family Interaction: Holding Infant Feeding: Attempted ; Nursed Fair/Poor Support Person: - Recovery Exam Fundal Tone: Firm Fundal Level: 2 Fingerbreadths Below Umbilicus Fundal Placement: Midline Lochia Amount: Scant Lochia Color: Rubra/Red Perineum Description: Intact, Minimal Bruising/Swelling Episiotomy/Laceration: None Bladder Status: Voiding Urinary Elimination: Voided - Exam General: Alert, Oriented HEENT: Pupils Equal Neck: Supple Lungs: Clear to Auscultation, Normal Respiratory Effort Cardiovascular: Regular Rate, Regular Rhythm GI/Abdominal Exam: Normal Bowel Sounds, Soft, Non-Tender, No Organomegaly, No Distention, No Abnormal Bruit, No Mass, Pelvis Stable Extremities: Normal Inspection, Normal Range of Motion, Non-Tender, No Pedal Edema, Normal Capillary Refill Skin: Warm, Dry, Intact Wound/Incisions: Healing Well Neurological: No New Focal Deficit Psy/Mental Status: Alert, Normal Affect, Normal Mood - Problem List Review Problem List Initiated/Reviewed/Updated: Yes - My Orders Last 24 Hours: My Active Orders 01/05/18 Breakfast Regular Diet [DIET] - Assessment Assessment:: Status post normal standard spontaneous vaginal delivery she is doing well she will be sent home today to be followed in office in 6 weeks - Plan Plan:: Terpregnancy in active labor.
== END 2018-01-05 15:27 | disposition home or self-care (01) | DRG 560 ==
LOC: MW.OBCHECK 05:13 → MW.OB 05:14 → MW.OBCHECK 05:30 → OBSVTOIN 05:41 → MW.OB 15:12
PROVIDERS: ADMIT Obstetrics & Gynecology; ATTEND Obstetrics & Gynecology
PROC: 10E0XZZ Delivery of Products of Conception, External Approach (ICD-10-PCS; principal; 2018-01-04)
PROC: 10907ZC Drainage of Amniotic Fluid, Therapeutic from Products of Conception, Via Natural or Artificial Opening (ICD-10-PCS; 2018-01-04)
DX: O80 Encounter for full-term uncomplicated delivery (principal); Z3A.40 40 weeks gestation of pregnancy; Z37.0 Single live birth
CPT/HCPCS: 36415; 59025; 59409; 85014; 85018; 85027; 86850; 86900; 86901; A9270-GY; J2590

== ENCOUNTER 2019-01-13 18:15 | Emergency (ER) | payer BC ==
--- NOTE | 2019-01-13 18:38 | EDM.PDOC ---
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 Review of systems: As per history of present illness and below otherwise all systems reviewed and negative. Past medical history: As per history of present illness and as reviewed below otherwise noncontributory. Surgical history: As per history of present illness and as reviewed below otherwise noncontributory. Social history: No reported history of drug or alcohol abuse. Family history: As per history of present illness and as reviewed below otherwise noncontributory. Physical exam: HEENT: Atraumatic, normocephalic, pupils reactive, negative for conjunctival pallor or scleral icterus, mucous membranes moist, throat clear, neck supple, nontender, trachea midline. Lungs: Clear to auscultation, breath sounds equal bilaterally, chest nontender. Heart: S1S2, regular, negative for clicks, rubs, or JVD. Abdomen: Soft, nondistended, nontender. Negative for masses or hepatosplenomegaly. Negative for costovertebral tenderness. Pelvis: Stable nontender. Genitourinary: Deferred. Rectal: Deferred. Extremities: Atraumatic, negative for cords or calf pain. Neurovascular unremarkable. Neuro: Awake, alert, oriented. Cranial nerves II through XII unremarkable. Cerebellum unremarkable. Motor and sensory unremarkable throughout. Exam nonfocal. Diagnostics: Serum hCG Therapeutics: None Impression: #1 medical screening exam #2 Definitive disposition and diagnosis as appropriate pending reevaluation and review of above. - Related Data Allergies Allergy/AdvReac Type Severity Reaction Status Date / Time No Known Allergies Allergy Verified 01/13/19 18:30 Home Meds: Home Meds . 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: Musculoskeletal History: Reports: None Neurological History: Reports: None Psychiatric History: Reports: None Endocrine/Metabolic History: Reports: None Hematologic History: Reports: None Immunologic History: Reports: None Oncologic (Cancer) History: Reports: None Dermatologic History: Reports: None - Infectious Disease History Infectious Disease History: Reports: None - Past Surgical History Head Surgeries/Procedures: Reports: None HEENT Surgical History: Reports: None Cardiovascular Surgical History: Reports: None Respiratory Surgical History: Reports: None GI Surgical History: Reports: None Female Surgical History: Reports: None Endocrine Surgical History: Reports: None Neurological Surgical History: Reports: None Musculoskeletal Surgical History: Reports: None Oncologic Surgical History: Reports: None Social & Family History - Family History Family Medical History: Noncontributory HEENT: Reports: None Cardiac: Reports: None Respiratory: Reports: None - Tobacco Use Smoking Status *Q: Never Smoker Second Hand Smoke Exposure: No - Caffeine Use Caffeine Use: Reports: Soda - Recreational Drug Use Recreational Drug Use: No ED ROS GENERAL - Review of Systems Review Of Systems: ROS reveals no pertinent complaints other than HPI. ED EXAM, GENERAL - Physical Exam Exam: See Below (See dictation) Course - Vital Signs Last Recorded V/S: Last Vital Signs Temp 36.7 C 01/13/19 18:30 Pulse 88 01/13/19 18:30 Resp 16 01/13/19 18:30 BP 133/52 L 01/13/19 18:30 Pulse Ox 100 01/13/19 18:30 - Orders/Labs/Meds Orders: Active Orders 24 hr Category Date Time Status HCG QUALITATIVE,SERUM [CHEM] Stat Lab 01/13/19 18:33 Ordered Departure - Departure Time of Disposition: 18:36 Disposition: Home, Self-Care 01 Condition: Good Clinical Impression: Encounter for medical screening examination, - Discharge Information Referrals: PCP,None [Primary Care Provider] - Additional Instructions: The following information is given to patients seen in the emergency department who are being discharged to home. This information is to outline your options for follow-up care. We provide all patients seen in our emergency department with a follow-up referral. The need for follow-up, as well as the timing and circumstances, are variable depending upon the specifics of your emergency department visit. If you don't have a primary care physician on staff, we will provide you with a referral. We always advise you to contact your personal physician following an emergency department visit to inform them of the circumstance of the visit and for follow-up with them and/or the need for any referrals to a consulting specialist. The emergency department will also refer you to a specialist when appropriate. This referral assures that you have the opportunity for followup care with a specialist. All of these measure are taken in an effort to provide you with optimal care, which includes your followup. Under all circumstances we always encourage you to contact your private physician who remains a resource for coordinating your care. When calling for followup care, please make the office aware that this follow-up is from your recent emergency room visit. If for any reason you are refused follow-up, please contact the [facility] emergency department at and asked to speak to the emergency department charge nurse. [facility] [address] [place] [id number] Follow-up women's health above vitamin as directed return as needed as discussed - My Orders Last 24 Hours: My Active Orders 01/13/19 18:33 HCG QUALITATIVE,SERUM [CHEM] Stat - Assessment/Plan Last 24 Hours: My Active Orders 01/13/19 18:33 HCG QUALITATIVE,SERUM [CHEM] Stat
[2019-01-13 19:37] VITALS: BP 116/64
== END 2019-01-13 19:37 | disposition home or self-care (01) ==
LOC: MW.ED 18:15
DX: Z32.01 Encounter for pregnancy test, result positive (principal)
CPT/HCPCS: 36415; 84703; 99282; 99283

== ENCOUNTER 2019-12-03 19:56 | Emergency (ER) | payer BC ==
[2019-12-03 20:25] VITALS: BP 118/76; PULSE 118
--- NOTE | 2019-12-03 21:13 | EDM.PDOC ---
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 The patient states that she does not have a primary provider. She states she took a home test that was negative. She is on an oral control pill but she does not take it every day. She has had irregular periods but has not been bleeding for a month. She reports hard stools. Denies dysuria, fever, abdominal pain, nausea or vomiting. - Related Data Allergies Allergy/AdvReac Type Severity Reaction Status Date / Time No Known Allergies Allergy Verified 12/03/19 20:15 Home Meds: Home Meds . 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 CARPET AND UPHOLSTERY History: Reports: Musculoskeletal History: Reports: None Neurological History: Reports: None Psychiatric History: Reports: None Endocrine/Metabolic History: Reports: None Hematologic History: Reports: None Immunologic History: Reports: None Oncologic (Cancer) History: Reports: None Dermatologic History: Reports: None - Infectious Disease History Infectious Disease History: Reports: None - Past Surgical History Head Surgeries/Procedures: Reports: None HEENT Surgical History: Reports: None Cardiovascular Surgical History: Reports: None Respiratory Surgical History: Reports: None GI Surgical History: Reports: None Female Surgical History: Reports: None Endocrine Surgical History: Reports: None Neurological Surgical History: Reports: None Musculoskeletal Surgical History: Reports: None Oncologic Surgical History: Reports: None Social & Family History - Family History Family Medical History: Noncontributory HEENT: Reports: None Cardiac: Reports: None Respiratory: Reports: None - Tobacco Use Smoking Status *Q: Never Smoker Second Hand Smoke Exposure: No - Caffeine Use Caffeine Use: Reports: None - Recreational Drug Use Recreational Drug Use: No ED ROS GENERAL - Review of Systems Review Of Systems: Comprehensive ROS is negative, except as noted in HPI. ED EXAM, GI/ABD - Physical Exam Exam: See Below Exam Limited By: No Limitations General Appearance: Alert, No Apparent Distress Ears: Normal External Exam Nose: Normal Inspection Throat/Mouth: Normal Inspection Head: Atraumatic, Normocephalic Neck: Normal Inspection Respiratory/Chest: No Respiratory Distress, Lungs Clear, Normal Breath Sounds Cardiovascular: Normal Peripheral Pulses, Regular Rate, Rhythm, No Murmur GI/Abdominal Exam: Normal Bowel Sounds, Soft, Non-Tender, No Distention Extremities: Normal Inspection Neurological: Alert, Oriented Psychiatric: Normal Affect, Normal Mood Skin Exam: Warm, Dry, Intact, Normal Color, No Rash Lymphatic: No Adenopathy Course - Vital Signs Last Recorded V/S: Last Vital Signs Temp 36.4 C 12/03/19 20:09 Pulse 118 H 12/03/19 20:09 Resp 18 12/03/19 20:09 BP 118/76 12/03/19 20:09 Pulse Ox 98 12/03/19 20:09 - Orders/Labs/Meds Labs: Laboratory Tests 12/03/19 12/03/19 12/03/19 Range/Units 20:15 20:15 21:00 WBC 3.77 L (4.0-11.0) K/uL RBC 4.34 (4.30-5.90) M/uL Hgb 12.3 (12.0-16.0) g/dL Hct 37.4 (36.0-46.0) % MCV 86.2 (80.0-98.0) fL MCH 28.3 (27.0-32.0) pg MCHC 32.9 (31.0-37.0) g/dL RDW Std Deviation 37.0 (28.0-62.0) fl RDW Coeff of Briana 12 (11.0-15.0) % Plt Count 178 (150-400) K/uL MPV 11.00 (7.40-12.00) fL Neut % (Auto) 52.4 (48.0-80.0) % Lymph % (Auto) 38.2 (16.0-40.0) % [place] % (Auto) 8.0 (0.0-15.0) % Eos % (Auto) 1.1 (0.0-7.0) % Baso % (Auto) 0.3 (0.0-1.5) % Neut # (Auto) 2.0 (1.4-5.7) K/uL Lymph # (Auto) 1.4 (0.6-2.4) K/uL [place] # (Auto) 0.3 (0.0-0.8) K/uL Eos # (Auto) 0.0 (0.0-0.7) K/uL Baso # (Auto) 0.0 (0.0-0.1) K/uL Nucleated RBC % 0.0 /100WBC Nucleated RBCs # 0 K/uL Sodium (136-145) mmol/L Potassium (3.5-5.1) mmol/L Chloride (98-107) mmol/L Carbon Dioxide (21.0-32.0) mmol/L BUN (7.0-18.0) mg/dL Creatinine (0.6-1.0) mg/dL Est Cr Clr Drug Dosing mL/min Estimated GFR (MDRD) ml/min Glucose (74-106) mg/dL Calcium (8.5-10.1) mg/dL Total Bilirubin (0.2-1.0) mg/dL AST (15-37) IU/L ALT (14-63) IU/L Alkaline Phosphatase (46-116) U/L Total Protein (6.4-8.2) g/dL Albumin (3.4-5.0) g/dL Globulin (2.6-4.0) g/dL Albumin/Globulin Ratio (0.9-1.6) Urine Color YELLOW Urine Appearance CLEAR Urine pH 6.0 (5.0-8.0) Ur Specific [place] >= 1.030 (1.001-1.035) Urine Protein NEGATIVE (NEGATIVE) mg/dL Urine Glucose (UA) NEGATIVE (NEGATIVE) mg/dL Urine Ketones 15 H (NEGATIVE) mg/dL Urine Occult Blood NEGATIVE (NEGATIVE) Urine Nitrite NEGATIVE (NEGATIVE) Urine Bilirubin NEGATIVE (NEGATIVE) Urine Urobilinogen 4.0 H (<2.0) EU/dL Ur Leukocyte Esterase NEGATIVE (NEGATIVE) Urine HCG, Qual NEGATIVE (NEGATIVE) 12/03/19 Range/Units 21:00 WBC (4.0-11.0) K/uL RBC (4.30-5.90) M/uL Hgb (12.0-16.0) g/dL Hct (36.0-46.0) % MCV (80.0-98.0) fL MCH (27.0-32.0) pg MCHC (31.0-37.0) g/dL RDW Std Deviation (28.0-62.0) fl RDW Coeff of Briana (11.0-15.0) % Plt Count (150-400) K/uL MPV (7.40-12.00) fL Neut % (Auto) (48.0-80.0) % Lymph % (Auto) (16.0-40.0) % [place] % (Auto) (0.0-15.0) % Eos % (Auto) (0.0-7.0) % Baso % (Auto) (0.0-1.5) % Neut # (Auto) (1.4-5.7) K/uL Lymph # (Auto) (0.6-2.4) K/uL [place] # (Auto) (0.0-0.8) K/uL Eos # (Auto) (0.0-0.7) K/uL Baso # (Auto) (0.0-0.1) K/uL Nucleated RBC % /100WBC Nucleated RBCs # K/uL Sodium 143 (136-145) mmol/L Potassium 3.6 (3.5-5.1) mmol/L Chloride 105 (98-107) mmol/L Carbon Dioxide 28.0 (21.0-32.0) mmol/L BUN 12 (7.0-18.0) mg/dL Creatinine 0.5 L (0.6-1.0) mg/dL Est Cr Clr Drug Dosing 130.12 mL/min Estimated GFR (MDRD) > 60.0 ml/min Glucose 99 (74-106) mg/dL Calcium 8.9 (8.5-10.1) mg/dL Total Bilirubin 0.4 (0.2-1.0) mg/dL AST 15 (15-37) IU/L ALT 17 (14-63) IU/L Alkaline Phosphatase 43 L (46-116) U/L Total Protein 7.0 (6.4-8.2) g/dL Albumin 3.4 (3.4-5.0) g/dL Globulin 3.6 (2.6-4.0) g/dL Albumin/Globulin Ratio 0.9 (0.9-1.6) Urine Color Urine Appearance Urine pH (5.0-8.0) Ur Specific [place] (1.001-1.035) Urine Protein (NEGATIVE) mg/dL Urine Glucose (UA) (NEGATIVE) mg/dL Urine Ketones (NEGATIVE) mg/dL Urine Occult Blood (NEGATIVE) Urine Nitrite (NEGATIVE) Urine Bilirubin (NEGATIVE) Urine Urobilinogen (<2.0) EU/dL Ur Leukocyte Esterase (NEGATIVE) Urine HCG, Qual (NEGATIVE) Departure - Departure Time of Disposition: 21:40 Disposition: Home, Self-Care 01 Condition: Good Clinical Impression: Weakness - Discharge Information Referrals: PCP,None [Primary Care Provider] - [facility] [Outside] [facility] [Outside] Forms: ED Department Discharge Additional Instructions: The following information is given to patients seen in the emergency department who are being discharged to home. This information is to outline your options for follow-up care. We provide all patients seen in our emergency department with a follow-up referral. The need for follow-up, as well as the timing and circumstances, are variable depending upon the specifics of your emergency department visit. If you don't have a primary care physician on staff, we will provide you with a referral. We always advise you to contact your personal physician following an emergency department visit to inform them of the circumstance of the visit and for follow-up with them and/or the need for any referrals to a consulting specialist. The emergency department will also refer you to a specialist when appropriate. This referral assures that you have the opportunity for follow-up care with a specialist. All of these measure are taken in an effort to provide you with optimal care, which includes your follow-up. Under all circumstances we always encourage you to contact your private physician who remains a resource for coordinating your care. When calling for follow-up care, please make the office aware that this follow-up is from your recent emergency room visit. If for any reason you are refused follow-up, please contact the [facility] Emergency Department at and asked to speak to the emergency department charge nurse. 1. You must make an appointment in primary care to follow up on your weakness and poor appetite. Your lab work today indicated no anemia, infection, electrolyte abnormalities, or urinary tract infection. Your kidney and liver function was good. Sepsis Event Note (ED) - Evaluation Sepsis Screening Result: No Definite Risk - Focused Exam Vital Signs: Vital Signs Temp Pulse Resp BP Pulse Ox 12/03/19 20:09 36.4 C 118 H 18 118/76 98
[2019-12-03 21:34] LABS: BLOOD UREA NITROGEN,BUN 12 mg/dL (7.0-18.0); CHLORIDE,CL 105 mmol/L (98-107); GLUCOSE RANDOM 99 mg/dL (74-106); POTASSIUM,K 3.6 mmol/L (3.5-5.1); SODIUM,NA 143 mmol/L (136-145)
== END 2019-12-03 21:50 | disposition home or self-care (01) ==
LOC: MW.ED 19:56
DX: R53.1 Weakness (principal)
CPT/HCPCS: 36415; 80053; 81003; 81025; 85025; 99284

== ENCOUNTER 2020-03-28 20:34 | Emergency (ER) | payer BC ==
[2020-03-28] MEDS ORDERED: Sodium Chloride 0.9% 1,000 ML IV ONE (21:15)
[2020-03-28] MEDS ORDERED: Sodium Chloride 0.9% 2.5 ML Syringe FLUSH PRN (21:15)
[2020-03-28] MEDS ORDERED: Sodium Chloride 0.9% 10 ML Syringe FLUSH PRN (21:15)
--- NOTE | 2020-03-28 21:32 | EDM.PDOC ---
ED HPI GENERAL MEDICAL PROBLEM - General Chief Complaint: General Stated Complaint: weak Time Seen by Provider: 03/28/20 21:05 - History of Present Illness INITIAL COMMENTS - FREE TEXT/NARRATIVE: HISTORY AND PHYSICAL: History of present illness: Is a 29-year-old female with a history significant for hypothyroidism who is currently on methimazole 5 mg daily who presents ER today secondary to feeling weak and dizzy. Patient reports that she works in [employer] services here at [facility]. Patient reports yesterday she was feeling fine however today she reports she went home and was feeling extremely weak and dizzy. Patient reports that she started her menses today. Patient reports that she gets her menses irregularly. Patient reports the last time she had her menses was approximately 3 months ago and that she had similar symptoms at that time. Patient denies any other symptoms at this time. Patient denies any recent fevers, shakes, chills, nausea, vomiting, diarrhea, dysuria, frequency, urgency, chest pain, shortness of breath. Patient reports that she feels like her heart rate is been rapid which is a chronic condition for her ever since has been diagnosed with her thyroid problem. Patient denies any recent cough, cold, runny nose, sore throat. Patient reports that in the past when she has had her menses that she is had similar type of symptoms of weakness and dizziness that she is having today. She reports that she follows up closely with her primary care doctor however they have not been able to help her resolve the symptoms. She reports that her irregular periods are believed to be secondary to her thyroid. Patient reports that she has not been tested for coronavirus recently. She reports that she thinks she might of had coronavirus exposures as she does work here in the [employer] with [employer]. Review of systems: As per history of present illness and below otherwise all systems reviewed and negative. Past medical history: As per history of present illness and as reviewed below otherwise noncontributory. Surgical history: As per history of present illness and as reviewed below otherwise noncontributory. Social history: No reported history of drug or alcohol abuse. Family history: As per history of present illness and as reviewed below otherwise noncontributory. Physical exam: HEENT: Atraumatic, normocephalic, pupils reactive, negative for conjunctival pallor or scleral icterus, mucous membranes moist, throat clear, neck supple, nontender, trachea midline. No JVD. Lungs: Clear to auscultation, breath sounds equal bilaterally, chest nontender. No wheezing rales or rhonchi Heart: Tachycardic with a heart rate of 120. Positive S1-S2. Abdomen: Soft, nondistended, nontender. Negative for masses or hepatosplenomegaly. Negative for costovertebral tenderness. Pelvis: Stable nontender. Genitourinary: Deferred. Rectal: Deferred. Extremities: Atraumatic, negative for cords or calf pain. Neurovascular unremarkable. No lower extremity edema. Neuro: Awake, alert, oriented. Cranial nerves II through XII unremarkable. Cerebellum unremarkable. Motor and sensory unremarkable throughout. Exam nonfocal. Diagnostics: CBC, CMP, D-dimer, TSH, EKG, urine test, Therapeutics: NSS x1 L Assessment and plan: This is a 29-year-old female who presents ER today secondary to generalized weakness and dizziness which started today. Patient reports that her. Also started today as well. Patient reports that she has had similar symptoms with her. In the past. Patient's labs in the ER revealed that she is significantly hyperthyroid which is likely contributing to her tachycardia and her dizziness and weakness. Patient also has irregular periods which is likely being contributed to by her hyperthyroidism. Patient was given atenolol 25 mg p.o. in the ED and will be discharged home with atenolol 25 mg p.o. daily to take in addition to her methimazole to help treat her hyperthyroidism. Patient reports that she feels much improved currently in the ED and does not feel dizzy at this time. Patient did receive 1 L of NSS in the ER in addition to the atenolol 25 mg. Patient's heart rate is currently 104. I have discussed with the patient that she needs to follow-up with her primary care physician in order to get her hyperthyroidism better controlled. Patient is going to be discharged home on a beta-tamra in addition to her thionamides. Definitive disposition and diagnosis as appropriate pending reevaluation and review of above. - Related Data Allergies Allergy/AdvReac Type Severity Reaction Status Date / Time No Known Allergies Allergy Verified 03/28/20 20:48 Home Meds: Home Meds methIMAzole [Methimazole] 5 mg PO DAILY 03/28/20 [History] atenoloL [Atenolol] 25 mg PO DAILY #21 tablet 03/29/20 [Rx] Past Medical History - Past Health History Medical/Surgical History: Denies Medical/Surgical History HEENT History: Reports: None Cardiovascular History: Reports: None Respiratory History: Reports: None Gastrointestinal History: Reports: None Genitourinary History: Reports: None RESEARCH EXECUTIVE History: Reports: Musculoskeletal History: Reports: None Neurological History: Reports: None Psychiatric History: Reports: None Endocrine/Metabolic History: Reports: None, Other (See Below) Other Endocrine/Metabolic History: Patient reports, "something with my thryroid, I am not sure". Hematologic History: Reports: None Immunologic History: Reports: None Oncologic (Cancer) History: Reports: None Dermatologic History: Reports: None - Infectious Disease History Infectious Disease History: Reports: None - Past Surgical History Head Surgeries/Procedures: Reports: None HEENT Surgical History: Reports: None Cardiovascular Surgical History: Reports: None Respiratory Surgical History: Reports: None GI Surgical History: Reports: None Female Surgical History: Reports: None Endocrine Surgical History: Reports: None Neurological Surgical History: Reports: None Musculoskeletal Surgical History: Reports: None Oncologic Surgical History: Reports: None Social & Family History - Family History Family Medical History: Noncontributory HEENT: Reports: None Cardiac: Reports: None Respiratory: Reports: None - Tobacco Use Tobacco Use Status *Q: Never Tobacco User - Caffeine Use Caffeine Use: Reports: None - Recreational Drug Use Recreational Drug Use: No ED ROS GENERAL - Review of Systems Review Of Systems: See Below ED EXAM, GENERAL - Physical Exam Exam: See Below #1 Interpretation EKG Interpretation Comments: EKG: As interpreted by ER physician: Sandra: Nonspecific ST-T wave abnormalities Normal axis No evidence of ST elevation RI Normal sinus tachycardia with a heart rate of 114 Course - Vital Signs Last Recorded V/S: Last Vital Signs Temp 97.9 F 03/28/20 20:49 Pulse 111 H 03/29/20 00:17 Resp 18 03/28/20 20:49 BP 107/63 03/29/20 00:17 Pulse Ox 98 03/28/20 20:49 - Orders/Labs/Meds Orders: Active Orders 24 hr Category Date Time Status Cardiac Monitoring [RC] . DIRECTED Care 03/28/20 21:15 Active EKG Documentation Completion [RC] AM Care 03/28/20 21:15 Active Ang Chest [CT] Stat Exams 03/28/20 22:35 Taken Sodium Chloride 0.9% [Saline Flush] Med 03/28/20 21:15 Active 10 ml FLUSH ASDIRECTED PRN Sodium Chloride 0.9% [Saline Flush] Med 03/28/20 21:15 Active 2.5 ml FLUSH ASDIRECTED PRN Saline Lock Insert [OM.PC] Stat Oth 03/28/20 21:15 Ordered Medication Orders Sodium Chloride (Saline Flush) 10 ml FLUSH ASDIRECTED PRN PRN Reason: Keep Vein Open Sodium Chloride (Saline Flush) 2.5 ml FLUSH ASDIRECTED PRN PRN Reason: Keep Vein Open Labs: Laboratory Tests 03/28/20 03/28/20 03/28/20 Range/Units 21:40 21:40 21:40 WBC 9.74 (4.0-11.0) K/uL RBC 5.94 H (4.30-5.90) M/uL Hgb 15.4 (12.0-16.0) g/dL Hct 46.3 H (36.0-46.0) % MCV 77.9 L (80.0-98.0) fL MCH 25.9 L (27.0-32.0) pg MCHC 33.3 (31.0-37.0) g/dL RDW Std Deviation 38.4 (28.0-62.0) fl RDW Coeff of Briana 14 (11.0-15.0) % Plt Count 194 (150-400) K/uL MPV 12.00 (7.40-12.00) fL Neut % (Auto) 85.1 H (48.0-80.0) % Lymph % (Auto) 12.3 L (16.0-40.0) % [place] % (Auto) 2.1 (0.0-15.0) % Eos % (Auto) 0.5 (0.0-7.0) % Baso % (Auto) 0.0 (0.0-1.5) % Neut # (Auto) 8.3 H (1.4-5.7) K/uL Lymph # (Auto) 1.2 (0.6-2.4) K/uL [place] # (Auto) 0.2 (0.0-0.8) K/uL Eos # (Auto) 0.1 (0.0-0.7) K/uL Baso # (Auto) 0.0 (0.0-0.1) K/uL Nucleated RBC % 0.0 /100WBC Nucleated RBCs # 0 K/uL D-Dimer, Quantitative 4.26 H (0.0-0.50) mg/L FEU Sodium (136-145) mmol/L Potassium (3.5-5.1) mmol/L Chloride (98-107) mmol/L Carbon Dioxide (21.0-32.0) mmol/L BUN (7.0-18.0) mg/dL Creatinine (0.6-1.0) mg/dL Est Cr Clr Drug Dosing mL/min Estimated GFR (MDRD) ml/min Glucose (74-106) mg/dL Calcium (8.5-10.1) mg/dL Total Bilirubin (0.2-1.0) mg/dL AST (15-37) IU/L ALT (14-63) IU/L Alkaline Phosphatase (46-116) U/L Total Protein (6.4-8.2) g/dL Albumin (3.4-5.0) g/dL Globulin (2.6-4.0) g/dL Albumin/Globulin Ratio (0.9-1.6) TSH 3rd Generation (0.36-3.74) uIU/mL Urine HCG, Qual NEGATIVE (NEGATIVE) SARS-CoV-2 RNA (ROSEMARY) (NEGATIVE) 03/28/20 03/28/20 Range/Units 21:40 22:40 WBC (4.0-11.0) K/uL RBC (4.30-5.90) M/uL Hgb (12.0-16.0) g/dL Hct (36.0-46.0) % MCV (80.0-98.0) fL MCH (27.0-32.0) pg MCHC (31.0-37.0) g/dL RDW Std Deviation (28.0-62.0) fl RDW Coeff of Briana (11.0-15.0) % Plt Count (150-400) K/uL MPV (7.40-12.00) fL Neut % (Auto) (48.0-80.0) % Lymph % (Auto) (16.0-40.0) % [place] % (Auto) (0.0-15.0) % Eos % (Auto) (0.0-7.0) % Baso % (Auto) (0.0-1.5) % Neut # (Auto) (1.4-5.7) K/uL Lymph # (Auto) (0.6-2.4) K/uL [place] # (Auto) (0.0-0.8) K/uL Eos # (Auto) (0.0-0.7) K/uL Baso # (Auto) (0.0-0.1) K/uL Nucleated RBC % /100WBC Nucleated RBCs # K/uL D-Dimer, Quantitative (0.0-0.50) mg/L FEU Sodium 138 (136-145) mmol/L Potassium 3.8 (3.5-5.1) mmol/L Chloride 103 (98-107) mmol/L Carbon Dioxide 24.0 (21.0-32.0) mmol/L BUN 10 (7.0-18.0) mg/dL Creatinine 0.6 (0.6-1.0) mg/dL Est Cr Clr Drug Dosing 104.06 mL/min Estimated GFR (MDRD) > 60.0 ml/min Glucose 101 (74-106) mg/dL Calcium 8.9 (8.5-10.1) mg/dL Total Bilirubin 0.6 (0.2-1.0) mg/dL AST 26 (15-37) IU/L ALT 41 (14-63) IU/L Alkaline Phosphatase 108 (46-116) U/L Total Protein 6.8 (6.4-8.2) g/dL Albumin 3.3 L (3.4-5.0) g/dL Globulin 3.5 (2.6-4.0) g/dL Albumin/Globulin Ratio 0.9 (0.9-1.6) TSH 3rd Generation 0.00 L (0.36-3.74) uIU/mL Urine HCG, Qual (NEGATIVE) SARS-CoV-2 RNA (ROSEMARY) NEGATIVE (NEGATIVE) Meds: Medications Generic Name Dose Route Start Last Admin Trade Name Freq PRN Reason Stop Dose Admin Sodium Chloride 10 ml 03/28/20 21:15 Saline Flush FLUSH ASDIRECTED PRN Keep Vein Open Sodium Chloride 2.5 ml 03/28/20 21:15 Saline Flush FLUSH ASDIRECTED PRN Keep Vein Open Discontinued Medications Generic Name Dose Route Start Last Admin Trade Name Elodia PRN Reason Stop Dose Admin Atenolol 25 mg 03/28/20 23:11 03/29/20 00:15 Tenormin PO 03/28/20 23:12 25 mg ONETIME ONE Administration Sodium Chloride 1,000 mls @ 999 mls/hr 03/28/20 21:15 03/28/20 21:32 Normal Saline IV 03/28/20 22:15 999 mls/hr .Bolus ONE Administration Iopamidol 50 ml 03/29/20 00:19 03/29/20 00:21 Isovue Multipack-370 (76%) IVPUSH 03/29/20 00:20 50 ml ONETIME STA Administration Departure - Departure Time of Disposition: 01:08 Disposition: Home, Self-Care 01 Condition: Good Clinical Impression: Dizziness, Weakness, Hyperthyroidism, Dehydration - Discharge Information Instructions: Dehydration, Adult, [id number], Weakness, [id number], Dizziness, [id number], Hyperthyroidism Referrals: PCP,None [Primary Care Provider] - Forms: ED Department Discharge Additional Instructions: You have been seen in the ER today secondary to your dizziness. Your labs in ER were significant for an elevated D-dimer for which we have gone a CT scan of your chest to make sure you do not have a blood clot causing her symptoms. Your CT scan of your chest did not show any evidence of any blood clots. Your labs are all within normal limits except for your thyroid test indicating that you are markedly hyperthyroid. Being hyperthyroid will cause your heart rate to be very rapid and can cause dizziness and a lot of the symptoms that you are describing. It can also cause irregular periods. We have started you on a beta-tamra called atenolol 25 mg to take daily to assist with your hyperthyroidism. Please take that in addition to your methimazole. Please call your doctor on Monday to make an appointment to see him so that they can better adjust your medications to improve your hyperthyroid state. I believe this will make you feel much better once you are hyperthyroid is better controlled. This may take weeks in order to achieve. The following information is given to patients seen in the emergency department who are being discharged to home. This information is to outline your options for follow-up care. We provide all patients seen in our emergency department with a follow-up referral. The need for follow-up, as well as the timing and circumstances, are variable depending upon the specifics of your emergency department visit. If you don't have a primary care physician on staff, we will provide you with a referral. We always advise you to contact your personal physician following an emergency department visit to inform them of the circumstance of the visit and for follow-up with them and/or the need for any referrals to a consulting specialist. The emergency department will also refer you to a specialist when appropriate. This referral assures that you have the opportunity for follow-up care with a specialist. All of these measure are taken in an effort to provide you with optimal care, which includes your follow-up. Under all circumstances we always encourage you to contact your private physician who remains a resource for coordinating your care. When calling for follow-up care, please make the office aware that this follow-up is from your recent emergency room visit. If for any reason you are refused follow-up, please contact the [facility] Emergency Department at and asked to speak to the emergency department charge nurse. [facility] - Primary Care [address] [place] [id number] [address] Sepsis Event Note (ED) - Evaluation Sepsis Screening Result: No Definite Risk - Focused Exam Vital Signs: Vital Signs Temp Pulse Pulse Resp BP BP Pulse Ox 03/29/20 00:17 111 H 107/63 03/29/20 00:15 111 H 107/63 03/28/20 20:49 97.9 F 117 H 18 105/68 98 - My Orders Last 24 Hours: My Active Orders 03/28/20 21:15 Cardiac Monitoring [RC] . DIRECTED EKG Documentation Completion [RC] AM Sodium Chloride 0.9% [Saline Flush] 10 ml FLUSH ASDIRECTED PRN Sodium Chloride 0.9% [Saline Flush] 2.5 ml FLUSH ASDIRECTED PRN Saline Lock Insert [OM.PC] Stat 03/28/20 22:35 Ang Chest [CT] Stat - Assessment/Plan Last 24 Hours: My Active Orders 03/28/20 21:15 Cardiac Monitoring [RC] . DIRECTED EKG Documentation Completion [RC] AM Sodium Chloride 0.9% [Saline Flush] 10 ml FLUSH ASDIRECTED PRN Sodium Chloride 0.9% [Saline Flush] 2.5 ml FLUSH ASDIRECTED PRN Saline Lock Insert [OM.PC] Stat 03/28/20 22:35 Ang Chest [CT] Stat
[2020-03-28 22:21] LABS: BLOOD UREA NITROGEN,BUN 10 mg/dL (7.0-18.0); CHLORIDE,CL 103 mmol/L (98-107); GLUCOSE RANDOM 101 mg/dL (74-106); POTASSIUM,K 3.8 mmol/L (3.5-5.1); SODIUM,NA 138 mmol/L (136-145)
[2020-03-28] MEDS ORDERED: Atenolol 25 MG Tab PO ONE (23:11)
[2020-03-29] MEDS ORDERED: Iopamidol 755 MG/ML 500 ML Multipack Bottle IVPUSH STA (00:19)
--- NOTE | 2020-03-29 01:07 | CT ---
INDICATION: Elevated D-dimer. Evaluate for PE. COMPARISON: None. TECHNIQUE: CT angiography of the chest PE protocol. 50 cc [id number]. FINDINGS: Thyroid gland is diffusely enlarged. No filling defect to indicate acute PE. Numerous prominent bilateral axillary lymph nodes. No mediastinal or hilar adenopathy. Residual thymic tissue. No pericardial effusion. Heart size is normal. Imaged portion of the upper abdomen is unremarkable. Bones are unremarkable. No focal lung consolidation, pleural effusion or pneumothorax. No suspicious pulmonary nodule or mass. Central airways are patent. IMPRESSION: 1. No evidence of acute PE. 2. Numerous prominent nonenlarged bilateral axillary lymph nodes of uncertain etiology. Consider lymphoproliferative process in the differential. Recommend clinical correlation. 3. Diffusely enlarged thyroid gland, which can be seen with thyroiditis. Recommend correlation with TSH and thyroid ultrasound non urgently. Please note that all CT scans at this facility use dose modulation, iterative reconstruction, and/or weight-based dosing when appropriate to reduce radiation dose to as low as reasonably achievable. Dictated by Chente Gonsalez MD @ Mar 29 2020 1:01AM Signed by Dr. Chente Gonsalez @ Mar 29 2020 1:05AM
[2020-03-29 01:31] VITALS: BP 97/59; PULSE 91
== END 2020-03-29 01:28 | disposition home or self-care (01) ==
LOC: MW.ED 20:34
DX: E05.90 Thyrotoxicosis, unspecified without thyrotoxic crisis or storm (principal); E86.0 Dehydration; Z79.899 Other long term (current) drug therapy; Z20.828 Contact with and (suspected) exposure to other viral communicable diseases
CPT/HCPCS: 36415; 71275; 80053; 81025; 84443; 85025; 85379; 87635; 93005; 99285; A9270; J7030; Q9967; 93010; 99284; U0002

== ENCOUNTER 2020-03-30 09:43 | Emergency (ER) | payer BC ==
[2020-03-30] MEDS ORDERED: diphenhydrAMINE 50 MG/ML SDV ONE (09:46)
[2020-03-30] MEDS ORDERED: EPINEPHrine 1 MG/ML SDV ONE (09:46)
[2020-03-30] MEDS ORDERED: methylPREDNISolone Sodium Succinate 125 MG/2 ML SDV ONE (09:47)
[2020-03-30] MEDS ORDERED: Famotidine 20 MG/2 ML SDV ONE (09:47)
[2020-03-30] MEDS ORDERED: EPINEPHrine 1 MG/ML SDV IM ONE (09:47)
[2020-03-30] MEDS ORDERED: diphenhydrAMINE 50 MG/ML SDV IVPUSH ONE (09:48)
[2020-03-30] MEDS ORDERED: Sodium Chloride 0.9% 2.5 ML Syringe FLUSH PRN (09:49)
[2020-03-30] MEDS ORDERED: Famotidine 20 MG/2 ML SDV IVPUSH ONE (09:49)
[2020-03-30] MEDS ORDERED: Sodium Chloride 0.9% 1,000 ML IV ONE (09:49)
[2020-03-30] MEDS ORDERED: Sodium Chloride 0.9% 10 ML Syringe FLUSH PRN (09:49)
[2020-03-30 09:53] VITALS: PULSE 136
[2020-03-30] MEDS ORDERED: Labetalol 100 MG/20 ML MDV IVPUSH ONE (09:56)
[2020-03-30] MEDS: methylPREDNISolone Sodium Succinate 125 MG/2 ML SDV IV ONE ×2 (09:58→11:23)
--- NOTE | 2020-03-30 09:58 | EDM.PDOC ---
ED HPI GENERAL MEDICAL PROBLEM - General Chief Complaint: Allergic Reaction Stated Complaint: TIGHTNESS OF THROAT Time Seen by Provider: 03/30/20 09:43 Source of Information: Reports: Patient History Limitations: Reports: No Limitations - History of Present Illness INITIAL COMMENTS - FREE TEXT/NARRATIVE: 29-year-old female past medical history hyperthyroidism on methimazole and atenolol presents for throat closing sensation. Patient notes that she was here 2 days ago and given "an antibiotic". She does not know the name of the medication or why she was taking it. She states that after taking the medication she experienced itching of her skin. She kept taking the medication, and this morning started to feel that her throat was closing and she was having shortness of breath. She is a poor historian. Looking through patient's records, it appears that patient was not given an antibiotic 2 days ago. She had thyroid studies sent showing significant hyperthyroidism. She was told to continue her methimazole, and was started on atenolol for rapid heart rate. - Related Data Allergies Allergy/AdvReac Type Severity Reaction Status Date / Time methimazole AdvReac Hives Verified 03/30/20 10:18 Home Meds: Home Meds Propranolol [Inderal] 40 mg PO BID #60 tab 03/30/20 [Rx] methIMAzole [Methimazole] 10 mg PO DAILY #30 tablet 03/30/20 [Rx] Past Medical History - Past Health History Medical/Surgical History: Denies Medical/Surgical History HEENT History: Reports: None Cardiovascular History: Reports: None Respiratory History: Reports: None Gastrointestinal History: Reports: None Genitourinary History: Reports: None HEAT READER History: Reports: Musculoskeletal History: Reports: None Neurological History: Reports: None Psychiatric History: Reports: None Endocrine/Metabolic History: Reports: None, Other (See Below) Other Endocrine/Metabolic History: Patient reports, "something with my thryroid, I am not sure". Hematologic History: Reports: None Immunologic History: Reports: None Oncologic (Cancer) History: Reports: None Dermatologic History: Reports: None - Infectious Disease History Infectious Disease History: Reports: None - Past Surgical History Head Surgeries/Procedures: Reports: None HEENT Surgical History: Reports: None Cardiovascular Surgical History: Reports: None Respiratory Surgical History: Reports: None GI Surgical History: Reports: None Female Surgical History: Reports: None Endocrine Surgical History: Reports: None Neurological Surgical History: Reports: None Musculoskeletal Surgical History: Reports: None Oncologic Surgical History: Reports: None Social & Family History - Family History Family Medical History: Noncontributory HEENT: Reports: None Cardiac: Reports: None Respiratory: Reports: None - Caffeine Use Caffeine Use: Reports: None ED ROS ALLERGIC REACTION - Review of Systems Review Of Systems: Comprehensive ROS is negative, except as noted in HPI. ED EXAM GENERAL NO PERIP PULSE - Physical Exam Exam: See Below Exam Limited By: No Limitations General Appearance: Alert, WD/WN, Anxious, Other (Speaking in full sentences without stridor or shortness of breath) Throat/Mouth: Normal Inspection, Normal Oropharynx, Normal Voice, No Airway Compromise Head: Atraumatic, Normocephalic Neck: Supple, Non-Tender, Thyromegaly Respiratory/Chest: No Respiratory Distress, Lungs Clear, Normal Breath Sounds, No Accessory Muscle Use Cardiovascular: Normal Peripheral Pulses, Regular Rate, Rhythm GI/Abdominal: Soft, Non-Tender Back Exam: Normal Inspection Extremities: Normal Inspection Neurological: Alert, Oriented Psychiatric: Anxious Skin Exam: Warm, Dry, Intact Course - Vital Signs Last Recorded V/S: Last Vital Signs Temp 97.2 F 03/30/20 09:46 Pulse 136 H 03/30/20 09:46 Resp 20 03/30/20 09:46 BP 102/76 03/30/20 09:46 Pulse Ox 98 03/30/20 09:46 - Orders/Labs/Meds Orders: Active Orders 24 hr Category Date Time Status EKG Documentation Completion [RC] STAT Care 03/30/20 10:04 Active CORONAVIRUS COVID-19 PCR PHL Stat Lab 03/30/20 10:10 Ordered UA W/OLEG RFLX IF INDICATED [URIN] Stat Lab 03/30/20 10:11 Ordered Sodium Chloride 0.9% [Saline Flush] Med 03/30/20 09:49 Active 10 ml FLUSH ASDIRECTED PRN Sodium Chloride 0.9% [Saline Flush] Med 03/30/20 09:49 Active 2.5 ml FLUSH ASDIRECTED PRN Saline Lock Insert [OM.PC] Stat Oth 03/30/20 09:49 Ordered Medication Orders Sodium Chloride (Saline Flush) 10 ml FLUSH ASDIRECTED PRN PRN Reason: Keep Vein Open Sodium Chloride (Saline Flush) 2.5 ml FLUSH ASDIRECTED PRN PRN Reason: Keep Vein Open Labs: Laboratory Tests 03/30/20 03/30/20 03/30/20 Range/Units 09:51 09:51 09:51 WBC 18.46 H (4.0-11.0) K/uL RBC 5.37 (4.30-5.90) M/uL Hgb 13.9 (12.0-16.0) g/dL Hct 41.8 (36.0-46.0) % MCV 77.8 L (80.0-98.0) fL MCH 25.9 L (27.0-32.0) pg MCHC 33.3 (31.0-37.0) g/dL RDW Std Deviation 39.1 (28.0-62.0) fl RDW Coeff of Briana 14 (11.0-15.0) % Plt Count 186 (150-400) K/uL MPV 11.50 (7.40-12.00) fL Neut % (Auto) 86.6 H (48.0-80.0) % Lymph % (Auto) 11.9 L (16.0-40.0) % Union % (Auto) 1.3 (0.0-15.0) % Eos % (Auto) 0.2 (0.0-7.0) % Baso % (Auto) 0.0 (0.0-1.5) % Neut # (Auto) 16.0 H (1.4-5.7) K/uL Lymph # (Auto) 2.2 (0.6-2.4) K/uL Union # (Auto) 0.2 (0.0-0.8) K/uL Eos # (Auto) 0.0 (0.0-0.7) K/uL Baso # (Auto) 0.0 (0.0-0.1) K/uL Nucleated RBC % 0.0 /100WBC Nucleated RBCs # 0 K/uL Lactate 2.2 H* (0.20-2.00) mmol/L Sodium 134 L (136-145) mmol/L Potassium 3.5 (3.5-5.1) mmol/L Chloride 100 (98-107) mmol/L Carbon Dioxide 23.5 (21.0-32.0) mmol/L BUN 16 (7.0-18.0) mg/dL Creatinine 0.7 (0.6-1.0) mg/dL Est Cr Clr Drug Dosing 110.01 mL/min Estimated GFR (MDRD) > 60.0 ml/min Glucose 110 H (74-106) mg/dL Calcium 8.7 (8.5-10.1) mg/dL Magnesium 1.9 (1.8-2.4) mg/dL Total Bilirubin 1.1 H (0.2-1.0) mg/dL AST 21 (15-37) IU/L ALT 28 (14-63) IU/L Alkaline Phosphatase 75 (46-116) U/L B-Natriuretic Peptide (<100) PG/ML Total Protein 6.8 (6.4-8.2) g/dL Albumin 2.9 L (3.4-5.0) g/dL Globulin 3.9 (2.6-4.0) g/dL Albumin/Globulin Ratio 0.7 L (0.9-1.6) Free T4 2.75 H (0.76-1.46) ng/dL Free T3 7.31 H (2.18-3.98) pg/mL TSH 3rd Generation <0.007 L (0.36-3.74) uIU/mL HCG, Qual (NEG) 03/30/20 03/30/20 Range/Units 09:51 09:51 WBC (4.0-11.0) K/uL RBC (4.30-5.90) M/uL Hgb (12.0-16.0) g/dL Hct (36.0-46.0) % MCV (80.0-98.0) fL MCH (27.0-32.0) pg MCHC (31.0-37.0) g/dL RDW Std Deviation (28.0-62.0) fl RDW Coeff of Briana (11.0-15.0) % Plt Count (150-400) K/uL MPV (7.40-12.00) fL Neut % (Auto) (48.0-80.0) % Lymph % (Auto) (16.0-40.0) % Union % (Auto) (0.0-15.0) % Eos % (Auto) (0.0-7.0) % Baso % (Auto) (0.0-1.5) % Neut # (Auto) (1.4-5.7) K/uL Lymph # (Auto) (0.6-2.4) K/uL Union # (Auto) (0.0-0.8) K/uL Eos # (Auto) (0.0-0.7) K/uL Baso # (Auto) (0.0-0.1) K/uL Nucleated RBC % /100WBC Nucleated RBCs # K/uL Lactate (0.20-2.00) mmol/L Sodium (136-145) mmol/L Potassium (3.5-5.1) mmol/L Chloride (98-107) mmol/L Carbon Dioxide (21.0-32.0) mmol/L BUN (7.0-18.0) mg/dL Creatinine (0.6-1.0) mg/dL Est Cr Clr Drug Dosing mL/min Estimated GFR (MDRD) ml/min Glucose (74-106) mg/dL Calcium (8.5-10.1) mg/dL Magnesium (1.8-2.4) mg/dL Total Bilirubin (0.2-1.0) mg/dL AST (15-37) IU/L ALT (14-63) IU/L Alkaline Phosphatase (46-116) U/L B-Natriuretic Peptide 8 (<100) PG/ML Total Protein (6.4-8.2) g/dL Albumin (3.4-5.0) g/dL Globulin (2.6-4.0) g/dL Albumin/Globulin Ratio (0.9-1.6) Free T4 (0.76-1.46) ng/dL Free T3 (2.18-3.98) pg/mL TSH 3rd Generation (0.36-3.74) uIU/mL HCG, Qual NEGATIVE (NEG) Meds: Medications Generic Name Dose Route Start Last Admin Trade Name Freq PRN Reason Stop Dose Admin Sodium Chloride 10 ml 03/30/20 09:49 Saline Flush FLUSH ASDIRECTED PRN Keep Vein Open Sodium Chloride 2.5 ml 03/30/20 09:49 Saline Flush FLUSH ASDIRECTED PRN Keep Vein Open Discontinued Medications Generic Name Dose Route Start Last Admin Trade Name Elodia PRN Reason Stop Dose Admin Diphenhydramine HCl Confirm 03/30/20 09:46 03/30/20 10:29 Benadryl Administered 03/30/20 09:47 Not Given Dose 0 mg .ROUTE .STK-MED ONE Diphenhydramine HCl 50 mg 03/30/20 09:48 03/30/20 10:29 Benadryl IVPUSH 03/30/20 09:49 Not Given ONETIME ONE Epinephrine HCl 0.3 mg 03/30/20 09:47 03/30/20 09:55 Adrenalin IM 03/30/20 09:48 0.3 mg ONETIME ONE Administration Epinephrine HCl Confirm 03/30/20 09:46 03/30/20 10:20 Adrenalin Administered 03/30/20 09:47 Not Given Dose 1 mg .ROUTE .STK-MED ONE Famotidine Confirm 03/30/20 09:47 03/30/20 10:30 Pepcid Administered 03/30/20 09:48 Not Given Dose 0 mg .ROUTE .STK-MED ONE Famotidine 20 mg 03/30/20 09:49 03/30/20 10:30 Pepcid IVPUSH 03/30/20 09:50 Not Given ONETIME ONE Sodium Chloride 1,000 mls @ 999 mls/hr 03/30/20 09:49 03/30/20 10:17 Normal Saline IV 03/30/20 10:49 999 mls/hr .Bolus ONE Administration Labetalol HCl 20 mg 03/30/20 09:56 03/30/20 10:20 Normodyne IVPUSH 03/30/20 09:57 20 mg ONETIME ONE Administration Protocol Lorazepam 0.5 mg 03/30/20 10:01 03/30/20 10:18 Ativan IVPUSH 03/30/20 10:02 0.5 mg ONETIME ONE Administration Methylprednisolone Sodium Succinate Confirm 03/30/20 09:47 03/30/20 10:31 Solu-Medrol Administered 03/30/20 09:48 Not Given Dose 125 mg .ROUTE .STK-MED ONE Methylprednisolone Sodium Succinate 125 mg 03/30/20 09:49 03/30/20 11:23 Solu-Medrol IV 03/30/20 09:50 Not Given ONETIME ONE - Re-Assessments/Exams Free Text/Narrative Re-Assessment/Exam: 03/30/20 09:55 On reassessment, patient tells nursing that she did not take the "antibiotic" that she was prescribed on Monday. She has taken no medications. She had been given epinephrine for presumed allergic reaction, but upon chart searching, it is likely that she is experiencing a hyperthyroid issue rather than an allergic reaction. D/c'ed benadryl, pepcid, methylprednisone. Will add IV metoprolol, ativan, IV fluid bolus. We will follow up thyroid studies that are sent. Will disposition accordingly. 03/30/20 10:10 Labs remarkable for leukocytosis to 20, will get urinalysis and chest x-ray to evaluate for infection. 03/30/20 10:23 Chart searching further reveals that patient has had symptoms for roughly 3 months. She had an outpatient ultrasound done on 1015 revealing evidence of thyroiditis. 2 days ago she had a CTA done of her neck and chest which did not reveal pulmonary embolism, but does show evidence of thyroiditis. Patient notes that she has been on the methimazole for about 1 month, but has not taken for the last couple of days because "I felt too weak". 03/30/20 12:01 Spoke with internal medicine physician at our hospital who recommends endocrinology consult. Will talk with endocrinology and disposition accordingly. 03/30/20 12:35 Dr. Stewart data manager at [facility] recommends increasing dosage of methimazole and starting propranolol rather than atenolol and to f/u with an data manager early next week. Will increase methimazole to 10mg, will start propranolol 40mg BID Departure - Departure Time of Disposition: 12:38 Disposition: Home, Self-Care 01 Condition: Good Clinical Impression: Thyroiditis - Discharge Information Prescriptions: Propranolol [Inderal] 40 mg PO BID #60 tab methIMAzole [Methimazole] 10 mg PO DAILY #30 tablet Referrals: PCP,None [Primary Care Provider] - Forms: ED Department Discharge Additional Instructions: Your labs are consistent with hyperthyroidism. This is a condition in which your thyroid is overactive. You were on a medication called methimazole which helps to correct this. Likely the medication was not a strong enough dose. I have sent in a prescription for methimazole 10 mg to your pharmacy. I have also sent in a medication called propranolol which she will take twice a day to help control your heart rate. Do not tack picker the other medication called atenolol that was called in for you, as this is the same type of medication as propranolol and are very dangerous to take together. You should follow-up with an data manager sometime either later this week or early next week. Information is provided below. Dr. Lorena Wang, [place] [address] [place] [address] Terry Pierre, [place] [address] [place] [address] The following information is given to patients seen in the emergency department who are being discharged to home. This information is to outline your options for follow-up care. We provide all patients seen in our emergency department with a follow-up referral. The need for follow-up, as well as the timing and circumstances, are variable depending upon the specifics of your emergency department visit. If you don't have a primary care physician on staff, we will provide you with a referral. We always advise you to contact your personal physician following an emergency department visit to inform them of the circumstance of the visit and for follow-up with them and/or the need for any referrals to a consulting specialist. The emergency department will also refer you to a specialist when appropriate. This referral assures that you have the opportunity for follow-up care with a specialist. All of these measure are taken in an effort to provide you with optimal care, which includes your follow-up. Under all circumstances we always encourage you to contact your private physician who remains a resource for coordinating your care. When calling for follow-up care, please make the office aware that this follow-up is from your recent emergency room visit. If for any reason you are refused follow-up, please contact the [facility] at and asked to speak to the emergency department charge nurse. Please follow up with your primary care physician. If you do not have a primary care physician, see below: [facility] [address] [place] [id number] [facility] [address] [place] [address] Sepsis Event Note (ED) - Evaluation Sepsis Screening Result: No Definite Risk - Focused Exam Vital Signs: Vital Signs Temp Pulse Resp BP Pulse Ox 03/30/20 09:46 97.2 F 136 H 20 102/76 98 - My Orders Last 24 Hours: My Active Orders 03/30/20 09:49 Sodium Chloride 0.9% [Saline Flush] 10 ml FLUSH ASDIRECTED PRN Sodium Chloride 0.9% [Saline Flush] 2.5 ml FLUSH ASDIRECTED PRN Saline Lock Insert [OM.PC] Stat 03/30/20 10:04 EKG Documentation Completion [RC] STAT 03/30/20 10:10 CORONAVIRUS COVID-19 PCR PHL Stat 03/30/20 10:11 UA W/OLEG RFLX IF INDICATED [URIN] Stat - Assessment/Plan Last 24 Hours: My Active Orders 03/30/20 09:49 Sodium Chloride 0.9% [Saline Flush] 10 ml FLUSH ASDIRECTED PRN Sodium Chloride 0.9% [Saline Flush] 2.5 ml FLUSH ASDIRECTED PRN Saline Lock Insert [OM.PC] Stat 03/30/20 10:04 EKG Documentation Completion [RC] STAT 03/30/20 10:10 CORONAVIRUS COVID-19 PCR PHL Stat 03/30/20 10:11 UA W/OLEG RFLX IF INDICATED [URIN] Stat
[2020-03-30] MEDS ORDERED: LORazepam 2 MG/ML SDV IVPUSH ONE (10:01)
[2020-03-30 10:36] LABS: BLOOD UREA NITROGEN,BUN 16 mg/dL (7.0-18.0); CARBON DIOXIDE,CO2 23.5 mmol/L (21.0-32.0); CHLORIDE,CL 100 mmol/L (98-107); GLUCOSE RANDOM 110 mg/dL (74-106); POTASSIUM,K 3.5 mmol/L (3.5-5.1); SODIUM,NA 134 mmol/L (136-145)
--- NOTE | 2020-03-30 11:20 | CR ---
INDICATION: Pneumonia. Hyperthyroidism. COMPARISON: None TECHNIQUE: PA and lateral views of the chest were acquired FINDINGS: TUBES AND LINES: None. HEART AND MEDIASTINUM: The heart size is normal. The mediastinal contour appears normal for patient age. LUNGS AND PLEURAL SPACES: The lungs appear normal.The pleural spaces are unremarkable. OSSEOUS STRUCTURES: Age-appropriate appearance. No acute focal finding. IMPRESSION: No evidence of active pulmonary disease. Dictated by Juan M Copeland MD @ Mar 30 2020 11:18AM Signed by Dr. Juan M Copeland @ Mar 30 2020 11:19AM
[2020-03-30 12:58] VITALS: BP 99/57
== END 2020-03-30 12:58 | disposition home or self-care (01) ==
LOC: MW.ED 09:43
DX: E06.9 Thyroiditis, unspecified (principal); Z88.8 Allergy status to other drugs, medicaments and biological substances; Z79.899 Other long term (current) drug therapy
CPT/HCPCS: 36415; 71045; 80053; 83605; 83735; 83880; 84439; 84443; 84481; 84703; 85025; 93005; 96372; 96374; 96375; 99285; J0171; J2060; J3490; J7030; J2930

== ENCOUNTER 2021-04-11 07:04 | Inpatient (IN) | payer BC ==
[2021-04-11] MEDS: Lactated Ringers 1,000 ML IV SCH ×2 (07:05→07:40)
[2021-04-11] MEDS ORDERED: Sodium Chloride 0.9% 10 ML Syringe FLUSH PRN (07:14)
[2021-04-11] MEDS ORDERED: Water For Irrigation,Sterile 1,000 ML Container IRR PRN (07:14)
[2021-04-11] MEDS ORDERED: Lidocaine 1% 50 ML MDV INJECT PRN (07:14)
[2021-04-11] MEDS ORDERED: Methylergonovine 0.2 MG/1 ML Amp IM PRN (07:14)
[2021-04-11] MEDS ORDERED: Tranexamic Acid 1,000 MG in Sodium Chloride 0.9% 100 ML IV PRN (07:14)
[2021-04-11] MEDS ORDERED: Butorphanol 1 MG/ML SDV IVPUSH PRN (07:14)
[2021-04-11] MEDS ORDERED: Sodium Chloride 0.9% 20 ML SDV IV PRN (07:14)
[2021-04-11] MEDS ORDERED: Carboprost Tromethamine 250 MCG/1 ML Amp IM PRN (07:14)
[2021-04-11] MEDS ORDERED: Sodium Chloride 0.9% 2.5 ML Syringe FLUSH PRN (07:14)
[2021-04-11] MEDS ORDERED: Nalbuphine 10 MG/1 ML Vial IVPUSH PRN (07:14)
[2021-04-11] MEDS ORDERED: Misoprostol 200 MCG Tab PO PRN (07:14)
[2021-04-11] MEDS ORDERED: Oxytocin/0.9 % Sodium Chloride 30 UNIT/500 ML BAG IV SCH (07:15)
[2021-04-11] MEDS ORDERED: Ropivacaine HCl/PF 200 ML ONE (07:55)
[2021-04-11] MEDS ORDERED: Bupivacaine 0.25% 10 ML SDV ONE (07:56)
--- NOTE | 2021-04-11 08:12 | PCM.PREANE ---
Preanesthetic Assessment - Anesthesia/Transfusion/Family Hx Anesthesia History: Prior Anesthesia Without Reaction Transfusion History: No Prior Transfusion(s) - Review of Systems General: No Symptoms Pulmonary: No Symptoms Cardiovascular: No Symptoms Gastrointestinal: No Symptoms Neurological: No Symptoms Other: Reports: None - Physical Assessment Height: 5 ft 4 in Weight: 63.503 kg ASA Class: 2 Mental Status: Alert & Oriented x3 Airway Class: Mallampati = 3 Dentition: Reports: Normal Dentition Thyro-Mental Finger Breadths: 3 Mouth Opening Finger Breadths: 3 ROM/Head Extension: Full Lungs: Clear to Auscultation, Normal Respiratory Effort Cardiovascular: Regular Rate, Regular Rhythm - Lab Values: Laboratory Last Values WBC 9.59 K/uL (4.0-11.0) 04/11/21 07:05 RBC 4.25 M/uL (4.30-5.90) L 04/11/21 07:05 Hgb 13.2 g/dL (12.0-16.0) 04/11/21 07:05 Hct 38.6 % (36.0-46.0) 04/11/21 07:05 MCV 90.8 fL (80.0-98.0) 04/11/21 07:05 MCH 31.1 pg (27.0-32.0) 04/11/21 07:05 MCHC 34.2 g/dL (31.0-37.0) 04/11/21 07:05 RDW Std Deviation 46.3 fl (28.0-62.0) 04/11/21 07:05 RDW Coeff of Briana 14 % (11.0-15.0) 04/11/21 07:05 Plt Count 171 K/uL (150-400) 04/11/21 07:05 MPV 12.70 fL (7.40-12.00) H 04/11/21 07:05 Nucleated RBC % 0.0 /100WBC 04/11/21 07:05 Nucleated RBCs # 0 K/uL 04/11/21 07:05 Blood Type O POSITIVE 04/11/21 07:05 Antibody Screen NEGATIVE 04/11/21 07:05 - Allergies Allergies/Adverse Reactions: Allergies Allergy/AdvReac Type Severity Reaction Status Date / Time methimazole AdvReac Hives Verified 03/30/20 10:18 - Acknowledgements Anesthesia Type Planned: Epidural Pt an Appropriate Candidate for the Planned Anesthesia: Yes Alternatives and Risks of Anesthesia Discussed w Pt/Guardian: Yes Pt/Guardian Understands and Agrees with Anesthesia Plan: Yes PreAnesthesia Questionnaire - Past Health History Medical/Surgical History: Denies Medical/Surgical History HEENT History: Reports: None Cardiovascular History: Reports: None Respiratory History: Reports: None Gastrointestinal History: Reports: None Genitourinary History: Reports: None OPTICS TEST TECHNICIAN History: Reports: Musculoskeletal History: Reports: None Neurological History: Reports: None Psychiatric History: Reports: None Endocrine/Metabolic History: Reports: None, Other (See Below) Other Endocrine/Metabolic History: Patient reports, "something with my thryroid, I am not sure". Hematologic History: Reports: None Immunologic History: Reports: None Oncologic (Cancer) History: Reports: None Dermatologic History: Reports: None - Infectious Disease History Infectious Disease History: Reports: None - Past Surgical History Head Surgeries/Procedures: Reports: None HEENT Surgical History: Reports: None Cardiovascular Surgical History: Reports: None Respiratory Surgical History: Reports: None GI Surgical History: Reports: None Female Surgical History: Reports: None Endocrine Surgical History: Reports: None Neurological Surgical History: Reports: None Musculoskeletal Surgical History: Reports: None Oncologic Surgical History: Reports: None - HOME MEDS Home Medications: Home Meds Propranolol [Inderal] 40 mg PO BID #60 tab 03/30/20 [Rx] methIMAzole [Methimazole] 10 mg PO DAILY #30 tablet 03/30/20 [Rx] - CURRENT (IN HOUSE) MEDS Current Meds: Current Medications Butorphanol Tartrate (Butorphanol 1 Mg/Ml Sdv) 1 mg IVPUSH Q1H PRN PRN Reason: Pain (severe 7-10) Carboprost Tromethamine (Carboprost Tromethamine 250 Mcg/1 Ml Amp) 250 mcg IM ASDIRECTED PRN PRN Reason: Post Hemorrhage Oxytocin/Sodium Chloride (Oxytocin 30 Unit In Ns 0.9% 500 Ml Premix) 30 unit in 500 mls @ 500 mls/hr IV TITRATE SEBASTIÁN Tranexamic Acid 1,000 mg/ (Sodium Chloride) 110 mls @ 660 mls/hr IV ONETIME PRN PRN Reason: Bleeding Lactated Ringer's (Ringers, Lactated) 1,000 mls @ 150 mls/hr IV ASDIRECTED SEBASTIÁN Last Admin: 04/11/21 07:05 Dose: 999 mls/hr Documented by: Lidocaine HCl (Lidocaine 1% 50 Ml Mdv) 50 ml INJECT ONETIME PRN PRN Reason: Laceration repair Methylergonovine Maleate (Methylergonovine 0.2 Mg/1 Ml Amp) 0.2 mg IM ASDIRE CTED PRN PRN Reason: Post Hemorrhage Misoprostol (Misoprostol 200 Mcg Tab) 200 mcg PO ONETIME PRN PRN Reason: Post Hemorrhage Nalbuphine HCl (Nalbuphine 10 Mg/1 Ml Vial) 10 mg IVPUSH Q1H PRN PRN Reason: Pain (severe 7-10) Sodium Chloride (Sodium Chloride 0.9% 10 Ml Syringe) 10 ml FLUSH ASDIRECTED PRN PRN Reason: Keep Vein Open Sodium Chloride (Sodium Chloride 0.9% 2.5 Ml Syringe) 2.5 ml FLUSH ASDIRECTED PRN PRN Reason: Keep Vein Open Sodium Chloride (Sodium Chloride 0.9% 20 Ml Sdv) 10 ml IV ASDIRECTED PRN PRN Reason: IV Use Sterile Water (Water For Irrigation,Sterile 1,000 Ml Container) 1,000 ml IRR ASDIRECTED PRN PRN Reason: delivery Discontinued Medications Bupivacaine HCl (Bupivacaine 0.25% 10 Ml Sdv) Confirm Administered Dose 10 ml .ROUTE .STK-MED ONE Stop: 04/11/21 07:57 Ropivacaine (Naropin 0.2%) Confirm Administered Dose 200 mls @ as directed .ROUTE .STK-MED ONE Stop: 04/11/21 07:56
--- NOTE | 2021-04-11 08:17 | PCM.POSTAN ---
POST ANESTHESIA ASSESSMENT - MENTAL STATUS Mental Status: Alert, Oriented - RESPIRATORY Respiratory Status: Respiratory Rate WNL, Airway Patent, O2 Saturation Stable - CARDIOVASCULAR CV Status: Pulse Rate WNL, Blood Pressure Stable - GASTROINTESTINAL GI Status: No Symptoms - POST OP HYDRATION Hydration Status: Adequate & Stable
--- NOTE | 2021-04-11 08:17 | PCM.SN.2 ---
- Pre-Procedure Checklist Attending Provider Aware: Yes Chart Reviewed: Yes Consent Signed: Yes Labs Reviewed: Yes VS/FHR Reviewed: Yes Patient Identification Confirmation Method: Reports: ID Band Visual, Verbal Patient Pt an Appropriate Candidate for the Planned Anesthesia: Yes Alternatives and Risks of Anesthesia Discussed w Pt/Guardian: Yes - Procedure Procedure Start Date: 04/11/21 Procedure Start Time: 07:[address]: Reports: Blood Pressure, Heart Rate, SPO2 Functional IV: Yes Bolus Infused (fluid type and amount): LR 1,000 ml Safety Measures: Reports: Patient Identified, Procedure Verified, Site Verified, Procedure Time Out Patient Position: Reports: Sitting Prep: Reports: Other (chloraprep stick) Local Anesthetic: Reports: Intradermal Wheal w Lidocaine 1% Regional Placement Level: Reports: L4-5 Needle: Reports: 17 g Touhy Approach: Reports: Midline Technique: Reports: KELIN Plastic Syringe Parasthesia: Reports: None, Right Transient (resolved) Fluid Obtained: Reports: None Test Dose Time: 07:49 Test Dose Medication: Reports: Lidocaine 1.5% w Epinephrine 1:200,000 Test Dose Response: Reports: Negative Loading Dose Time: 07:53 Loading Dose Medication: Bupivacaine 0.25% MPF 5 ml and 5 ml repeated at 0758 Loading Dose Patient Position: semi-fowlers with TITO Continuous Infusion Start Time: 08:00 Continuous Infusion Medication: Ropivacaine 0.2% Continuous Infusion Rate: 15 ml/hr Patient Position Post Placement: Reports: Semi-fowlers/TITO Post-procedure Pain Level: 1 Level Achieved: T-10 VS and FHR Monitored in Unit Post Placement: Yes Procedure End Date: 04/11/21 Procedure End Time: 08:33 Procedure Comment: Pt. tolerated procedure well.
[2021-04-11] MEDS ORDERED: ePHEDrine 50 MG/ML SDV IVPUSH PRN (08:18)
[2021-04-11] MEDS ORDERED: Ropivacaine 0.2% 2MG/ML 200 ML Bag EPIDUR SCH (08:45)
--- NOTE | 2021-04-11 09:01 | PCM.LDHP ---
L&D History of Present Illness - General Date of Service: 04/11/21 Admit Problem/Dx: Patient Status Order with Admit Dx/Problem 04/11/21 07:14 Patient Status [ADT] Routine Admission Diagnosis/Problem Admission Diagnosis/Problem Source of Information: Patient History Limitations: Reports: No Limitations - History of Present Illness Improves with: Reports: None Worsens with: Reports: None Associated Symptoms: Reports: N - Related Data Allergies/Adverse Reactions: Allergies Allergy/AdvReac Type Severity Reaction Status Date / Time methimazole AdvReac Hives Verified 03/30/20 10:18 Home Medications: Home Meds Propranolol [Inderal] 40 mg PO BID #60 tab 03/30/20 [Rx] methIMAzole [Methimazole] 10 mg PO DAILY #30 tablet 03/30/20 [Rx] Past Medical History - Past Health History Medical/Surgical History: Denies Medical/Surgical History HEENT History: Reports: None Cardiovascular History: Reports: None Respiratory History: Reports: None Gastrointestinal History: Reports: None Genitourinary History: Reports: None 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 Hematologic History: Reports: None Immunologic History: Reports: None Oncologic (Cancer) History: Reports: None Dermatologic History: Reports: None - Infectious Disease History Infectious Disease History: Reports: None - Past Surgical History Head Surgeries/Procedures: Reports: None HEENT Surgical History: Reports: None Cardiovascular Surgical History: Reports: None Respiratory Surgical History: Reports: None GI Surgical History: Reports: None Female Surgical History: Reports: None Endocrine Surgical History: Reports: None Neurological Surgical History: Reports: None Musculoskeletal Surgical History: Reports: None Oncologic Surgical History: Reports: None Social & Family History - Family History Family Medical History: No Pertinent Family History HEENT: Reports: None Cardiac: Reports: None Respiratory: Reports: None - Caffeine Use Caffeine Use: Reports: None H&P Review of Systems - Review of Systems: Review Of Systems: See Below General: Reports: No Symptoms HEENT: Reports: No Symptoms Pulmonary: Reports: No Symptoms Cardiovascular: Reports: No Symptoms Gastrointestinal: Reports: No Symptoms Genitourinary: Reports: No Symptoms Musculoskeletal: Reports: No Symptoms Skin: Reports: No Symptoms Psychiatric: Reports: No Symptoms Neurological: Reports: No Symptoms Hematologic/Lymphatic: Reports: No Symptoms Immunologic: Reports: No Symptoms L&D Exam - Exam Exam: See Below - Vital Signs Weight: 63.503 kg - OB Specific Contraction Intensity: Moderate Movement: Active Heart Tones: Present Presentation: Vertex - Willis Score Willis Score Cervix Position: Anterior Willis Score Consistency: Soft Willis Score Effacement: >80% Willis Score Dilation: > 5 cm Willis Score 's Station: -2 Willis Score Total: 11 - Exam General: Alert, Oriented HEENT: PERRLA, Conjunctiva Clear, EACs Clear, EOMI, Hearing Intact, Mucosa Moist & [place], Nares Patent, Normal Nasal Septum, Posterior Pharynx Clear, TMs Clear Neck: Supple, Trachea Midline Lungs: Clear to Auscultation, Normal Respiratory Effort Cardiovascular: Regular Rate, Regular Rhythm GI/Abdominal Exam: Normal Bowel Sounds, Soft, Non-Tender, No Organomegaly, No Distention, No Abnormal Bruit, No Mass, Pelvis Stable Rectal Exam: Normal Exam, Normal Rectal Tone Genitourinary: Normal external exam, Normal bimanual exam, Normal speculum exam Back Exam: Normal Inspection, Full Range of Motion Extremities: Normal Inspection, Normal Range of Motion, Non-Tender, No Pedal Edema, Normal Capillary Refill Skin: Warm, Dry, Intact Neurological: Cranial Nerves Intact, Reflexes Equal Bilateral Psychiatric: Alert, Normal Affect, Normal Mood - Patient Data Lab Results Last 24 hrs: Laboratory Results - last 24 hr 04/11/21 04/11/21 04/11/21 Range/Units 07:05 07:05 07:05 WBC 9.59 (4.0-11.0) K/uL RBC 4.25 L (4.30-5.90) M/uL Hgb 13.2 (12.0-16.0) g/dL Hct 38.6 (36.0-46.0) % MCV 90.8 (80.0-98.0) fL MCH 31.1 (27.0-32.0) pg MCHC 34.2 (31.0-37.0) g/dL RDW Std Deviation 46.3 (28.0-62.0) fl RDW Coeff of Briana 14 (11.0-15.0) % Plt Count 171 (150-400) K/uL MPV 12.70 H (7.40-12.00) fL Nucleated RBC % 0.0 /100WBC Nucleated RBCs # 0 K/uL SARS-CoV-2 RNA (ROSEMARY) NEGATIVE (NEGATIVE) Blood Type O POSITIVE Antibody Screen NEGATIVE Result Diagrams: 04/11/21 07:05 Problem List Initiated/Reviewed/Updated: Yes Orders Last 24hrs: Active Orders 24 hr Category Date Time Status Patient Status [ADT] Routine ADT 04/11/21 07:14 Active Communication Order [RC] PRN Care 04/11/21 08:18 Active Heart Tones [RC] CONTINUOUS Care 04/11/21 07:14 Active Non Stress Test [RC] PER UNIT ROUTINE Care 04/11/21 07:14 Active May Shower [RC] ASDIRECTED Care 04/11/21 07:14 Active Notify Provider [RC] PRN Care 04/11/21 07:14 Active Up ad Monica [RC] ASDIRECTED Care 04/11/21 07:14 Active Vaginal Exam [RC] PRN Care 04/11/21 07:14 Active Vital Signs [RC] PER UNIT ROUTINE Care 04/11/21 07:14 Active RPR (SYPHILIS SERO) W/ RFLX [REF] Routine Lab 04/11/21 07:05 Received Butorphanol [Stadol] Med 04/11/21 07:14 Active 1 mg IVPUSH Q1H PRN Carboprost Tromethamine [Hemabate DS] Med 04/11/21 07:14 Active 250 mcg IM ASDIRECTED PRN Lactated Ringers [Ringers, Lactated] 1,000 ml Med 04/11/21 07:15 Active IV ASDIRECTED Lidocaine 1% [Xylocaine 1%] Med 04/11/21 07:14 Active 50 ml INJECT ONETIME PRN Methylergonovine [Methergine] Med 04/11/21 07:14 Active 0.2 mg IM ASDIRECTED PRN Nalbuphine [Nubain] Med 04/11/21 07:14 Active 10 mg IVPUSH Q1H PRN Oxytocin/0.9 % Sodium Chloride [Oxytocin 30 Unit in NS Med 04/11/21 07:15 Active 0.9% 500 ML Premix] 30 unit in 500 ml IV TITRATE Phenylephrine HCl In 0.9% NaCl [Phenylephrine 1 MG/10 Med 04/11/21 08:18 Active ML-NS] 0.1 mg IVPUSH Q1M PRN Ropivacaine HCl/PF [Naropin 0.2%] Med 04/11/21 08:45 Active 400 mg EPIDUR ASDIRECTED Sodium Chloride 0.9% [Normal Saline] Med 04/11/21 07:14 Active 10 ml IV ASDIRECTED PRN Sodium Chloride 0.9% [Saline Flush] Med 04/11/21 07:14 Active 10 ml FLUSH ASDIRECTED PRN Sodium Chloride 0.9% [Saline Flush] Med 04/11/21 07:14 Active 2.5 ml FLUSH ASDIRECTED PRN Tranexamic Acid [Cyklokapron] 1,000 mg Med 04/11/21 07:14 Active Sodium Chloride 0.9% [Normal Saline] 100 ml IV ONETIME Water For Irrigation,Sterile [Sterile Water for Med 04/11/21 07:14 Active Irrigation] 1,000 ml IRR ASDIRECTED PRN ePHEDrine [ePHEDrine sulfate] Med 04/11/21 08:18 Active 10 mg IVPUSH Q1M PRN miSOPROStoL [Cytotec] Med 04/11/21 07:14 Active 200 mcg PO ONETIME PRN Scalp Electrode [WOMSER] Per Unit Routine Oth 04/11/21 07:14 Ordered Peripheral IV Insertion Adult [OM.PC] Routine Oth 04/11/21 07:14 Ordered Resuscitation Status Routine Resus Stat 04/11/21 07:14 Ordered Medication Orders Butorphanol Tartrate (Butorphanol 1 Mg/Ml Sdv) 1 mg IVPUSH Q1H PRN PRN Reason: Pain (severe 7-10) Carboprost Tromethamine (Carboprost Tromethamine 250 Mcg/1 Ml Amp) 250 mcg IM ASDIRECTED PRN PRN Reason: Post Hemorrhage Ephedrine Sulfate (Ephedrine 50 Mg/Ml Sdv) 10 mg IVPUSH Q1M PRN PRN Reason: Hypotension Oxytocin/Sodium Chloride (Oxytocin 30 Unit In Ns 0.9% 500 Ml Premix) 30 unit in 500 mls @ 500 mls/hr IV TITRATE [place] Tranexamic Acid 1,000 mg/ (Sodium Chloride) 110 mls @ 660 mls/hr IV ONETIME PRN PRN Reason: Bleeding Lactated Ringer's (Ringers, Lactated) 1,000 mls @ 150 mls/hr IV ASDIRECTED ON LICENSE OF [facility] Last Infusion: 04/11/21 08:10 Dose: 150 mls/hr Documented by: JOSE J Admin: 04/11/21 07:40 Dose: 999 mls/hr Documented by: JOSE J Infusion: 04/11/21 07:40 Dose: 999 mls/hr Documented by: JOSE J Admin: 04/11/21 07:05 Dose: 999 mls/hr Documented by: JOSE J Lidocaine HCl (Lidocaine 1% 50 Ml Mdv) 50 ml INJECT ONETIME PRN PRN Reason: Laceration repair Methylergonovine Maleate (Methylergonovine 0.2 Mg/1 Ml Amp) 0.2 mg IM ASDIRECTED PRN PRN Reason: Post Hemorrhage Miscellaneous Medication (Phenylephrine Hcl In 0.9% Nacl 1 Mg/10 Ml Syringe) 0.1 mg IVPUSH Q1M PRN PRN Reason: Hypotension Misoprostol (Misoprostol 200 Mcg Tab) 200 mcg PO ONETIME PRN PRN Reason: Post Hemorrhage Nalbuphine HCl (Nalbuphine 10 Mg/1 Ml Vial) 10 mg IVPUSH Q1H PRN PRN Reason: Pain (severe 7-10) Ropivacaine (Ropivacaine 0.2% 2mg/Ml 200 Ml Bag) 400 mg EPIDUR ASDIRECTED [place] Sodium Chloride (Sodium Chloride 0.9% 10 Ml Syringe) 10 ml FLUSH ASDIRECTED PRN PRN Reason: Keep Vein Open Sodium Chloride (Sodium Chloride 0.9% 2.5 Ml Syringe) 2.5 ml FLUSH ASDIRECTED PRN PRN Reason: Keep Vein Open Sodium Chloride (Sodium Chloride 0.9% 20 Ml Sdv) 10 ml IV ASDIRECTED PRN PRN Reason: IV Use Sterile Water (Water For Irrigation,Sterile 1,000 Ml Container) 1,000 ml IRR DIRECTED PRN PRN Reason: delivery Assessment/Plan Comment:: Termpregnancy P6006 in active labor.
[2021-04-11] MEDS ORDERED: Ibuprofen 400 MG Tab PO PRN (15:18)
[2021-04-11] MEDS ORDERED: Witch Hazel Medicated Pads 40/Jar TOP PRN (15:18)
[2021-04-11] MEDS ORDERED: Ibuprofen 800 MG Tab PO PRN (15:18)
[2021-04-11] MEDS ORDERED: Lanolin 100% Cream 7 GM Tube TOP PRN (15:18)
[2021-04-11] MEDS ORDERED: oxyCODONE 5 MG Tab PO PRN (15:18)
[2021-04-11] MEDS ORDERED: Docusate Sodium 100 MG Cap PO PRN (15:18)
[2021-04-11] MEDS ORDERED: Benzocaine/Menthol 20%-0.5% Spray 78 GM Cannister TOP PRN (15:18)
[2021-04-11] MEDS ORDERED: Bisacodyl 10 MG Supp RECTAL PRN (15:18)
[2021-04-11] MEDS ORDERED: Acetaminophen 500 MG Tab PO PRN ×2 (15:18)
--- NOTE | 2021-04-11 15:50 | OR ---
SURGEON: Ced Rose MD DATE OF PROCEDURE: 04/11/2021 INDICATIONS: Ms. Garcias is a 30-year-old. She is para 6-0-0-6. She is followed in our clinic primarily by me. She started her care late in this . Her initial screening for was normal. Her GBS status is negative. Her diabetes screen is normal. The patient was admitted in active labor early this morning. At the time of admission, she was 6, complete, vertex, and 0 to - 1 station. PROCEDURE IN DETAIL: The patient had epidural anesthesia for labor analgesia and then at about 8:20, I did an artificial rupture of the membrane and meconium-stained amniotic fluid is noted and the patient at that time she was complete at 0 station. Then, after that, she commenced pushing and she had a normal spontaneous vaginal delivery of female fetus. score reported to be 8 and 9. The weight is not available. The placenta delivered spontaneous, complete, and intact without any problem. There was no perineal, labial, or vaginal laceration. Episiotomy was not performed. Estimated blood loss is 250 to 300 mL. heart rate was category 1 through the entire process of labor. There was no complication in the labor and delivery of this patient. JAYA / CANDICE /[id number]
[2021-04-11] MEDS: Codeine/guaiFENesin 10-100 MG/5 ML Syrup 5 ML Cup PO PRN (21:03)
--- NOTE | 2021-04-11 21:14 | PCM48HPAN ---
Post Anesthesia Note - EVALUATION WITHIN 48HRS OF ANESTHETIC Vital Signs in Normal Range: Yes Patient Participated in Evaluation: Yes Respiratory Function Stable: Yes Airway Patent: Yes Cardiovascular Function Stable: Yes Hydration Status Stable: Yes Pain Control Satisfactory: Yes Nausea and Vomiting Control Satisfactory: Yes Mental Status Recovered: Yes Vital Signs: Last Vital Signs Temp 97.8 F 04/11/21 16:00 Pulse 86 04/11/21 16:00 Resp 16 04/11/21 16:00 BP 126/80 04/11/21 16:00 Pulse Ox 98 04/11/21 16:00
[2021-04-12] MEDS: Codeine/guaiFENesin 10-100 MG/5 ML Syrup 5 ML Cup PO PRN (06:07)
[2021-04-12 08:12] VITALS: BP 111/65; PULSE 79
--- NOTE | 2021-04-12 08:29 | PCM.PNPP ---
- General Info Date of Service: 04/12/21 Functional Status: Reports: Pain Controlled - Review of Systems General: Reports: No Symptoms HEENT: Reports: No Symptoms Pulmonary: Reports: No Symptoms Cardiovascular: Reports: No Symptoms Gastrointestinal: Reports: No Symptoms Genitourinary: Reports: No Symptoms Musculoskeletal: Reports: No Symptoms Skin: Reports: No Symptoms Neurological: Reports: No Symptoms Psychiatric: Reports: No Symptoms - General Info Date of Service: 04/12/21 - Patient Data Vital Signs - Most Recent: Last Vital Signs Temp 36.4 C 04/12/21 08:12 Pulse 79 04/12/21 08:12 Resp 18 04/12/21 08:12 BP 111/65 04/12/21 08:12 Pulse Ox 98 04/12/21 08:12 Weight - Most Recent: 77.111 kg Lab Results - Last 24 Hours: Laboratory Results - last 24 hr 04/12/21 Range/Units 05:40 Hgb 11.7 L (12.0-16.0) g/dL Hct 35.0 L (36.0-46.0) % Med Orders - Current: Current Medications Acetaminophen (Acetaminophen 500 Mg Tab) 500 mg PO Q4H PRN PRN Reason: Pain (mild 1-3) Acetaminophen (Acetaminophen 500 Mg Tab) 1,000 mg PO Q4H PRN PRN Reason: Pain (mild 1-3) Last Admin: 04/11/21 18:35 Dose: 1,000 mg Documented by: Benzocaine/Menthol (Benzocaine/Menthol 20%-0.5% Peck 78 Gm Cannister) 78 gm TOP ASDIRECTED PRN PRN Reason: Perineal Comfort Measure Bisacodyl (Bisacodyl 10 Mg Supp) 10 mg RECTAL ONETIME PRN PRN Reason: Constipation Docusate Sodium (Docusate Sodium 100 Mg Cap) 100 mg PO Q12H PRN PRN Reason: Constipation Emollient Ointment (Lanolin 100% Cream 7 Gm Tube) 0 gm TOP ASDIRECTED PRN PRN Reason: Sore Nipples Ephedrine Sulfate (Ephedrine 50 Mg/Ml Sdv) 10 mg IVPUSH Q1M PRN PRN Reason: Hypotension Guaifenesin/Codeine Phosphate (Codeine/Guaifenesin 10-100 Mg/5 Ml Syrup 5 Ml Cup) 5 ml PO Q4H PRN PRN Reason: Cough Last Admin: 04/12/21 06:07 Dose: 5 ml Documented by: Ibuprofen (Ibuprofen 400 Mg Tab) 400 mg PO Q4H PRN PRN Reason: Pain (mild 1-3) Ibuprofen (Ibuprofen 800 Mg Tab) 800 mg PO Q6H PRN PRN Reason: Cramping Last Admin: 04/11/21 15:42 Dose: 800 mg Documented by: Lidocaine HCl (Lidocaine 1% 50 Ml Mdv) 50 ml INJECT ONETIME PRN PRN Reason: Laceration repair Oxycodone HCl (Oxycodone 5 Mg Tab) 5 mg PO Q2H PRN PRN Reason: Pain (severe 7-10) Sodium Chloride (Sodium Chloride 0.9% 10 Ml Syringe) 10 ml FLUSH ASDIRECTED PRN PRN Reason: Keep Vein Open Sodium Chloride (Sodium Chloride 0.9% 2.5 Ml Syringe) 2.5 ml FLUSH ASDIRECTED PRN PRN Reason: Keep Vein Open Sodium Chloride (Sodium Chloride 0.9% 20 Ml Sdv) 10 ml IV ASDIRECTED PRN PRN Reason: IV Use Discontinued Medications Bupivacaine HCl (Bupivacaine 0.25% 10 Ml Sdv) Confirm Administered Dose 10 ml .ROUTE .STK-MED ONE Stop: 04/11/21 07:57 Butorphanol Tartrate (Butorphanol 1 Mg/Ml Sdv) 1 mg IVPUSH Q1H PRN PRN Reason: Pain (severe 7-10) Carboprost Tromethamine (Carboprost Tromethamine 250 Mcg/1 Ml Amp) 250 mcg IM ASDIRECTED PRN PRN Reason: Post Hemorrhage Oxytocin/Sodium Chloride (Oxytocin 30 Unit In Ns 0.9% 500 Ml Premix) 30 unit in 500 mls @ 500 mls/hr IV TITRATE [facility] Last Admin: 04/11/21 08:53 Dose: 500 mls/hr Documented by: Tranexamic Acid 1,000 mg/ (Sodium Chloride) 110 mls @ 660 mls/hr IV ONETIME PRN PRN Reason: Bleeding Lactated Ringer's (Ringers, Lactated) 1,000 mls @ 150 mls/hr IV ASDIRECTED [facility] Last Infusion: 04/11/21 08:10 Dose: 150 mls/hr Documented by: Ropivacaine (Naropin 0.2%) Confirm Administered Dose 200 mls @ as directed .ROUTE .Vee24-MED ONE Stop: 04/11/21 07:56 Methylergonovine Maleate (Methylergonovine 0.2 Mg/1 Ml Amp) 0.2 mg IM ASDIRECTED PRN PRN Reason: Post Hemorrhage Miscellaneous Medication (Phenylephrine Hcl In 0.9% Nacl 1 Mg/10 Ml Syringe) 0.1 mg IVPUSH Q1M PRN PRN Reason: Hypotension Misoprostol (Misoprostol 200 Mcg Tab) 200 mcg PO ONETIME PRN PRN Reason: Post Hemorrhage Nalbuphine HCl (Nalbuphine 10 Mg/1 Ml Vial) 10 mg IVPUSH Q1H PRN PRN Reason: Pain (severe 7-10) Ropivacaine (Ropivacaine 0.2% 2mg/Ml 200 Ml Bag) 400 mg EPIDUR ASDIRECTED [place] Sterile Water (Water For Irrigation,Sterile 1,000 Ml Container) 1,000 ml IRR ASDIRECTED PRN PRN Reason: delivery Witch Gabby (Witch Gabby Medicated Pads 40/Jar) 1 pad TOP ASDIRECTED PRN PRN Reason: comfort care - Infant Interaction Infant Disposition, : in Room with Family Interaction: Holding Infant Infant Feeding: Attempted ; Nursed Fair/Poor Support Person: - Recovery Exam Fundal Tone: Firm Fundal Level: 1 Fingerbreadths Below Umbilicus Fundal Placement: Midline Lochia Amount: Scant Lochia Color: Rubra/Red Perineum Description: Intact, Minimal Bruising/Swelling Episiotomy/Laceration: None Bladder Status: Voiding Urinary Elimination: Voided - Exam General: Alert, Oriented HEENT: Pupils Equal Neck: Supple Lungs: Clear to Auscultation, Normal Respiratory Effort Cardiovascular: Regular Rate, Regular Rhythm GI/Abdominal Exam: Normal Bowel Sounds, Soft, Non-Tender, No Organomegaly, No Distention, No Abnormal Bruit, No Mass, Pelvis Stable Extremities: Normal Inspection, Normal Range of Motion, Non-Tender, No Pedal Edema, Normal Capillary Refill Skin: Warm, Dry, Intact Wound/Incisions: Healing Well Neurological: No New Focal Deficit Psy/Mental Status: Alert, Normal Affect, Normal Mood - Problem List Review Problem List Initiated/Reviewed/Updated: Yes - My Orders Last 24 Hours: My Active Orders 04/11/21 09:44 Codeine/guaiFENesin [Robitussin AC] 5 ml PO Q4H PRN 04/11/21 15:18 Patient Status [ADT] Routine Acetaminophen [Tylenol Extra Strength] 1,000 mg PO Q4H PRN Acetaminophen [Tylenol Extra Strength] 500 mg PO Q4H PRN Benzocaine/Menthol [Dermoplast Pain Relief 20%-0.5% Peck] 78 gm TOP ASDIRECTED PRN Docusate Sodium [Colace] 100 mg PO Q12H PRN Ibuprofen [Motrin] 400 mg PO Q4H PRN Ibuprofen [Motrin] 800 mg PO Q6H PRN Lanolin [Lansinoh HPA] See Dose Instructions TOP ASDIRECTED PRN bisacodyL [Dulcolax] 10 mg RECTAL ONETIME PRN oxyCODONE 5 mg PO Q2H PRN Assess Lochia [WOMSER] Per Unit Routine Assess Uterine Involution [WOMSER] Per Unit Routine Peripheral IV Discontinue [OM.PC] Routine - Assessment Assessment:: Status post normal spontaneous vaginal delivery she is doing well we will send her home today with the post vaginal delivery instruction - Plan Plan:: Termpregnancy P6006 in active labor.
== END 2021-04-12 11:51 | disposition home or self-care (01) | DRG 560 ==
LOC: MW.OBCHECK 07:04 → MW.OB 07:14 → OBSVTOIN 15:18
PROVIDERS: ADMIT Obstetrics & Gynecology; ATTEND Obstetrics & Gynecology
PROC: 10E0XZZ Delivery of Products of Conception, External Approach (ICD-10-PCS; principal; 2021-04-11)
PROC: 10907ZC Drainage of Amniotic Fluid, Therapeutic from Products of Conception, Via Natural or Artificial Opening (ICD-10-PCS; 2021-04-11)
PROC: 3E0R3BZ Introduction of Anesthetic Agent into Spinal Canal, Percutaneous Approach (ICD-10-PCS; 2021-04-11)
PROC: 00HU33Z Insertion of Infusion Device into Spinal Canal, Percutaneous Approach (ICD-10-PCS; 2021-04-11)
DX: O77.0 Labor and delivery complicated by meconium in amniotic fluid (principal); Z37.0 Single live birth; Z3A.38 38 weeks gestation of pregnancy; Z88.8 Allergy status to other drugs, medicaments and biological substances; Z20.822 Contact with and (suspected) exposure to COVID-19
CPT/HCPCS: 36415; 51701; 59025; 59409; 85014; 85018; 85027; 86592; 86850; 86900; 86901; A9270-GY; J2590; J2795; J3490; J7120; U0002